=== PATIENT | male | born 1945 | race Two or more races ===

== ENCOUNTER 2017-02-27 10:30 | Emergency (ER) | payer MEDICARE, MEDICAID ==
[2017-02-27 11:09] LABS: % BASOPHILS 0.3 % (0.0-2.0); % EOSINOPHILS 0.6 % (0.0-5.0); % MONOCYTES 8.3 % (2.0-10.0); % NEUTROPHILS 73.8 % (40.0-80.0); HEMATOCRIT 42.4 % (39.0-49.0); HEMOGLOBIN 14.3 gm/dL (12.6-17.4); MEAN CELL VOLUME 89.3 fl (80-99); MEAN CORPUSCULAR HEMOGLOBIN 30.1 pg (27.0-31.0); MEAN CORPUSCULAR HGB CONC 33.7 pg (28.0-36.0); MEAN PLATELET VOLUME 7.4 fl; NEUTROPHILE ABSOLUTE 4.1 Th/cmm (1.8-8.0); PLATELET COUNT 134 Th/cmm (150-400); RED BLOOD COUNT 4.75 Mil/cmm (3.80-5.80); RED CELL DISTRIBUTION WIDTH 13.1 % (11.5-20.0)
[2017-02-27 11:12] LABS: WHITE BLOOD COUNT 5.6 Th/cmm (4.8-10.8)
[2017-02-27 11:20] LABS: INR 0.94 (0.5-1.4); PROTHROMBIN TIME (TEST) 9.8 SECONDS (9.5-11.5)
[2017-02-27 11:30] LABS: CHOLESTEROL 185 mg/dL (<200); TRIGLYCERIDES 127 mg/dL (<150)
[2017-02-27 11:32] LABS: ALB/GLOB RATIO 1.1 (1.0-1.8); ALKALINE PHOSPHATASE 100 U/L (34-104); ANION GAP 9.1 (7.0-16.0); BILIRUBIN,TOTAL 0.9 mg/dL (0.3-1.0); BUN - UREA NITROGEN 15 mg/dL (7-25); BUN/CREATININE RATIO 12.5; CARBON DIOXIDE 25.4 mEq/L (21.0-31.0); CHLORIDE 105 mEq/L (98-107); CREATININE - SERUM 1.2 mg/dL (0.7-1.3); GLUCOSE 111 mg/dL (70-105); POTASSIUM SERUM 3.5 mEq/L (3.5-5.1); SGOT 18 U/L (13-39); SGPT/ALT 10 U/L (7-52); SODIUM SERUM 136 mEq/L (136-145)
--- NOTE | 2017-02-27 11:38 | ED Physician Chart ---
Chief Complaint/HPI - Patient Information Date Seen:: 02/27/17 Time Seen:: 11:00 Chief Complaint:: right hip pain History of Present Illness:: THIS IS A 71 YO LONG TERM PATIENT SENT TO THIS ER FOR A EVALUATION OF HIS RIGHT HIP. HE WAS MOVING FROM THE BED TO THE CHAIR AND FELL. HE NOW IS COMPLAINING THAT HIS RIGHT HIP AREA IS HURTING AND THE PAIN INCREASES WHEN HE MOVES. HE IS CHRONICALLY ILL. Allergies:: Allergies Allergy/AdvReac Type Severity Reaction Status Date / Time No Known Allergies Allergy Verified 02/27/17 10:48 Vitals:: Vital Signs - 8 hr 02/27/17 10:48 Temp 97.3 F HR 78 RR 17 BP 147/79 O2 Sat % 96 Historian:: Patient, Medical Records Review:: Nurse's Note Reviewed, Old Chart Reviewed Review of Systems - Review of Systems General/Constitutional: No fever, No chills, No weight loss, No weakness, No diaphoresis, No edema, No loss of appetite Skin: No skin lesions, No rash, No bruising Head: No headache, No light-headedness Eyes: No loss of vision, No pain, No diplopia ENT: No earache, No nasal drainage, No sore throat, No tinnitus Neck: No neck pain, No swelling, No thyromegaly, No stiffness, No mass noted Cardio Vascular: No chest pain, No palpitations, No PND, No orthopnea, No edema Pulmonary: No SOB, No cough, No sputum, No wheezing GI: No nausea, No vomiting, No diarrhea, No pain, No melena, No hematochezia, No constipation, No hematemesis G/U: No dysuria, No frequency, No hematuria Musculoskeletal: Bone or joint pain (RIGHT HIP PAIN ON MOVEMENT), No back pain, No muscle pain Endocrine: No polyuria, No polydipsia Psychiatric: No prior psych history, No depression, No anxiety, No suicidal ideation Hematopoietic: No bruising, No lymphadenopathy Allergic/Immuno: No urticaria, No angioedema Neurological: No syncope, No focal symptoms, No weakness, No paresthesia, No headache, No seizure, No dizziness, No confusion, No vertigo Past Medical History - Past Medical History Obtainable: Yes Past Medical History: HTN, CVA/TIA, Dyslipidemia, Arthritis Family History: None Social History: Non Smoker, No Alcohol, No Drug Use, Care Facility Surgical History: None Psychiatricy History: None Medication: Reviewed Family Medical History - Family Member Mother History Unknown: Yes Ethnicity: Unknown Living Status: Unknown Hx Family Cancer: No Hx Family Coronary Artery Disease: No Hx Family Congestive Heart Failure: No Hx Family Hypertension: No Hx Family Stroke: No Hx Family Diabetes: No Hx Family Seizures: No Hx Family Dementia: No Hx Family AIDS: No Hx Family HIV: No Hx Family COPD: No Hx Family Hepatitis: No Hx Family Psychiatric Problems: No Hx Family Tuberculosis: No Physical Exam - Physical Examination General/Constitutional: Awake, Well-developed, well-nourished, Alert, No distress, GCS 15, Non-toxic appearing, Ambulatory Head: Atraumatic Eyes: Lids, conjuctiva normal, PERRL, EOMI Skin: Nl inspection, No rash, No skin lesions, No ecchymosis, Well hydrated, No lymphadenopathy ENMT: External ears, nose nl, Nasal exam nl, Lips, teeth, gums nl Neck: Nontender, Full ROM w/o pain, No JVD, No nuchal rigidity, No bruit, No mass, No stridor Respiratory: Nl effort/Exclusion, Clear to Auscultation, No Wheeze/Rhonchi/Rales Cardio Vascular: RRR, No murmur, gallop, rubs, NL S1 S2 GI: No tenderness/rebounding/guarding, No organomegaly, No hernia, Normal BS's, Nondistended, No mass/bruits, No McBurney tenderness : No CVA tenderness Extremities: No tenderness or effusion (THE RIGHT HIP AREA IS TENDER ON ROM WITH PAIN BUT NORMAL.), Full ROM, normal strength in all extremities, No edema, Normal digits & nails Neuro/Psych: Alert/oriented, DTR's symmetric, Normal sensory exam, Judgement/ insight normal, Mood normal, Normal gait Other Neuro/Psych comments:: THERE IS LEFT SIDED PARALYSIS OF THE UPPER EXTREMITY AND RIGHT LOWER QUADRANT WEAKNESS. Misc: normal gait, Normal back, No paraspinal tenderness Labs/Radiology/EKG Results - Lab Results Results: Laboratory Tests 02/27/17 02/27/17 02/27/17 10:55 10:55 10:55 WBC 5.6 D RBC 4.75 Hgb 14.3 Hct 42.4 MCV 89.3 MCH 30.1 MCHC Differential 33.7 RDW 13.1 Plt Count 134 L D MPV 7.4 Neutrophils % 73.8 Lymphocytes % 17.0 L Monocytes % 8.3 Eosinophils % 0.6 Basophils % 0.3 PT 9.8 INR 0.94 PTT (Actin FS) 26.4 Sodium Potassium Chloride Carbon Dioxide Anion Gap BUN Creatinine Est GFR ( Amer) Est GFR (Non-Af Amer) BUN/Creatinine Ratio Glucose Calcium Total Bilirubin AST ALT Alkaline Phosphatase Total Protein Albumin Globulin Albumin/Globulin Ratio Triglycerides 127 Cholesterol 185 LDL Cholesterol Direct 166 HDL Cholesterol 30 02/27/17 10:55 WBC RBC Hgb Hct MCV MCH MCHC Differential RDW Plt Count MPV Neutrophils % Lymphocytes % Monocytes % Eosinophils % Basophils % PT INR PTT (Actin FS) Sodium 136 Potassium 3.5 Chloride 105 Carbon Dioxide 25.4 Anion Gap 9.1 BUN 15 Creatinine 1.2 Est GFR ( Amer) TNP Est GFR (Non-Af Amer) TNP BUN/Creatinine Ratio 12.5 Glucose 111 H Calcium 9.0 Total Bilirubin 0.9 AST 18 ALT 10 Alkaline Phosphatase 100 Total Protein 6.9 Albumin 3.6 L Globulin 3.3 Albumin/Globulin Ratio 1.1 Triglycerides Cholesterol LDL Cholesterol Direct HDL Cholesterol - Radiology Results Results: RIGHT HIP X-RAY = DEGENERATIVE JOINT DISEASE OF THE RIGHT HIP JOINT. CHEST X-RAY = NAD - EKG Interpretations EKG Time:: 10:56 Rate & Rhythm: 67 RATE, SINUS [place]: RIGHT AXIS Assessment - Assessment General Assessment: NO FRACTURE WITH RIGHT HIP JOINT DISEASE. ED Septic Shock - . Is Septic Shock (SBP<90, OR Lactate>4 mmol\L) present?: No - <6hrs of presentation: Vital Signs: Vital Signs - 8 hr 02/27/17 10:48 Temp 97.3 F HR 78 RR 17 BP 147/79 O2 Sat % 96 Reassessment (Disposition) - Reassessment Reassessment Condition:: Unchanged - Diagnosis Diagnosis:: RIGHT HIP CONTUSION RIGHT HIP JOINT DISEASE - Aftercare/Follow up Instructions Aftercare/Follow-Up Instructions:: Counseled pt regarding lab results/diagnosis & need follow up, Refer to Discharge Instructions, Counseled pt & family regarding lab results/diagnosis & need follow up - Patient Disposition Discharge/Transfer:: Detention Care - SNF ED Discharge Plan - Patient Disposition Admit/Discharge/Transfer: Discharge/Transfered to SNF Condition at Disposition: Improved Instructions: Contusion Accepting Physician: Jimmy Castaneda [Primary Care Provider] - 1-3 Days
--- NOTE | 2017-02-27 13:06 | Diagnostic Imaging Report ---
Exam: Right hip joint 2 views HISTORY: Trauma. Findings: Multiple views of right hip joint reviewed. The study demonstrates severe osteoarthritic changes with narrowing of joint space. There is no evidence for acute fracture dislocation. The visualized right hemipelvis is intact. 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
--- NOTE | 2017-02-27 13:09 | Diagnostic Imaging Report ---
Exam chest portable x-ray HISTORY: Cough. Findings: Portable upright examination of the chest at 1119 hours reviewed no prior studies available comparison. The study demonstrates no active pulmonic infiltrates or effusions. Mediastinal structures midline the heart is not enlarged the aortic arch calcified. Thorax is intact IMPRESSION: No acute disease
== END 2017-02-27 13:35 ==
LOC: ER 10:30
DX: S70.01XA Contusion of right hip, initial encounter (principal); E78.5 Hyperlipidemia, unspecified; I10 Essential (primary) hypertension; Z86.73 Personal history of transient ischemic attack (TIA), and cerebral infarction without residual deficits; W07.XXXA Fall from chair, initial encounter; Y93.89 Activity, other specified; Y92.89 Other specified places as the place of occurrence of the external cause; Y99.8 Other external cause status
CPT/HCPCS: 36415-UA; 71010-TC; 73501; 80053-TC; 80061-TC; 84443-TC; 84484-TC; 85025-TC; 85610-TC; 85730-TC; 86592-TC; 93005; J1885

== ENCOUNTER 2017-07-25 13:25 | Inpatient (IN) | payer MEDICARE, MEDICAID ==
--- NOTE | 2017-07-25 13:46 | ED Physician Chart ---
ED Chief Complaint/HPI - Patient Information Date Seen:: 07/25/17 Time Seen:: 13:30 Chief Complaint:: Fever History of Present Illness:: onset x 3 weeks of intermittent fever, cough, and congestion; N/V multiple times x 2 days; no report of H/As, S/T, neck pain, C/P, SOB, Abd. Pain, A/D/C, chills, or urinary s/s Allergies:: Allergies Allergy/AdvReac Type Severity Reaction Status Date / Time No Known Allergies Allergy Verified 02/27/17 10:48 Historian:: Patient, EMS Review:: Nurse's Note Reviewed, Old Chart Reviewed, EMS run form Reviewed ED Review of Systems - Review of Systems General/Constitutional: Fever, No chills, No weight loss, No weakness, No diaphoresis, No edema, No loss of appetite Skin: No skin lesions, No rash, No bruising Head: No headache, No light-headedness Eyes: No loss of vision, No pain, No diplopia ENT: No earache, Nasal drainage, No sore throat, No tinnitus Neck: No neck pain, No swelling, No thyromegaly, No stiffness, No mass noted Cardio Vascular: No chest pain, No palpitations, No PND, No orthopnea, No edema Pulmonary: No SOB, Cough, No sputum, No wheezing GI: No nausea, No vomiting, No diarrhea, No pain, No melena, No hematochezia, No constipation, No hematemesis G/U: No dysuria, No frequency, No hematuria, No nacturia Musculoskeletal: No bone or joint pain, No back pain, No muscle pain Endocrine: No polyuria, No polydipsia Psychiatric: Prior psych history, Depression, Anxiety, No suicidal ideation, No homicidal ideation, No auditory hallucination, No visual hallucination Hematopoietic: No bruising, No lymphadenopathy Allergic/Immuno: No urticaria, No angioedema Neurological: No syncope, No focal symptoms, No weakness, No paresthesia, No headache, No seizure, No dizziness, No confusion, No vertigo ED Past Medical History - Past Medical History Obtainable: Yes Past Medical History: HTN, CVA/TIA, Dyslipidemia, PUD/GERD, Arthritis, Other ( BPH) Family History: Diabetes Melitus, HTN Social History: Non Smoker, No Alcohol, No Drug Use, Single, Care Facility Surgical History: None Psychiatricy History: Bipolar Medication: Reviewed Family Medical History - Family Member Mother History Unknown: Yes Ethnicity: Unknown Living Status: Unknown Hx Family Cancer: No Hx Family Coronary Artery Disease: No Hx Family Congestive Heart Failure: No Hx Family Hypertension: No Hx Family Stroke: No Hx Family Diabetes: No Hx Family Seizures: No Hx Family Dementia: No Hx Family AIDS: No Hx Family HIV: No Hx Family COPD: No Hx Family Hepatitis: No Hx Family Psychiatric Problems: No Hx Family Tuberculosis: No ED Physical Exam - Physical Examination General/Constitutional: Awake, Well-developed, well-nourished, Alert, No distress, GCS 15, Non-toxic appearing, Ambulatory Head: Atraumatic Eyes: Lids, conjuctiva normal, PERRL, EOMI Skin: Nl inspection, No rash, No skin lesions, No ecchymosis, No lymphadenopathy Other Skin comments:: Poor Turgor with dry mucous membranes ENMT: External ears, nose nl, TM canals nl, Nasal exam nl, Lips, teeth, gums nl , Oropharynx nl, Tonsils nl Neck: Nontender, Full ROM w/o pain, No JVD, No nuchal rigidity, No bruit, No mass, No stridor Respiratory: Nl effort/Exclusion, Clear to Auscultation, No Wheeze/Rhonchi/Rales Cardio Vascular: RRR, No murmur, gallop, rubs, NL S1 S2, Carotid/Femoral/Distal pulses equal bilaterally GI: No tenderness/rebounding/guarding, No organomegaly, No hernia, Normal BS's, Nondistended, No mass/bruits, No McBurney tenderness : No CVA tenderness Extremities: No tenderness or effusion, Full ROM, normal strength in all extremities, No edema, Normal digits & nails Neuro/Psych: Alert/oriented, DTR's symmetric, Normal sensory exam, Normal motor strength, Judgement/insight normal, Mood normal, Normal gait, No focal deficits Misc: Normal back, No paraspinal tenderness ED Labs/Radiology/EKG Results - Lab Results Comments:: WBC: 3.3 - Radiology Results Comments:: CXR: CM; NAD - EKG Interpretations EKG Time:: 15:21 Rate & Rhythm: 82; NSR Comments:: non-specific st-t changes ED Septic Shock - . Is Septic Shock (SBP<90, OR Lactate>4 mmol\L) present?: No ED Reassessment (Disposition) - Diagnosis Diagnosis:: Dx: Leukopenia; Sepsis; N/V; Gastritis; AGE; Intractable Vomiting; Dehydration; Bronchitis - Aftercare/Follow up Instructions Aftercare/Follow-Up Instructions:: Counseled pt regarding lab results/diagnosis & need follow up, Counseled pt & family regarding lab results/diagnosis & need follow up Medication Prescribed:: Dr. Castaneda referred pt to be admitted under Dr. Steve Woody - Patient Disposition Discharge/Transfer:: Acute Care w/in this hosp Accepting Physician:: Dr. Steve Woody Time Called:: 1600 Time Responded:: 16:00 Admitted to:: Med/Surg Spoke to:: Dr. Castaneda Admitting Medical Physician:: Dr. Steve Woody Condition at Disposition:: Stable, Improved
[2017-07-25] MEDS ORDERED: Sodium Chloride 0.9% 1,000 ML IV ONE (13:48)
[2017-07-25 14:20] LABS: % BASOPHILS 3.9 % (0.0-2.0); % EOSINOPHILS 0.2 % (0.0-5.0); % LYMPHOCYTES 6.9 % (20.0-50.0); % MONOCYTES 7.4 % (2.0-10.0); % NEUTROPHILS 81.6 % (40.0-80.0); BASOPHILE ABSOLUTE 0.1 Th/cumm (0-0.2); HEMOGLOBIN 14.3 gm/dL (12-16); LYMPHOCYTE ABSOLUTE 0.2 Th/cmm (1.5-3.0); MEAN CELL VOLUME 93.1 fl (80-99); MEAN CORPUSCULAR HEMOGLOBIN 31.6 pg (27.0-31.0); MEAN PLATELET VOLUME 7.4 fl; MONOCYTE ABSOLUTE 0.2 Th/cmm (0.3-1.0); NEUTROPHILE ABSOLUTE 2.8 Th/cmm (1.8-8.0); PLATELET COUNT 110 Th/cmm (150-400); RED BLOOD COUNT 4.51 Mil/cmm (3.80-5.80); RED CELL DISTRIBUTION WIDTH 13.5 % (11.5-20.0)
[2017-07-25 14:29] LABS: INR 1.06 (0.5-1.4)
[2017-07-25 14:31] LABS: WHITE BLOOD COUNT 3.3 Th/cmm (4.8-10.8)
[2017-07-25 14:41] LABS: TROP I 0.02 ng/mL (0.01-0.05)
--- NOTE | 2017-07-25 14:43 | Diagnostic Imaging Report ---
Portable chest x-ray HISTORY: Pain The heart appears to be somewhat enlarged. No focal pulmonary processes. No hilar or mediastinal abnormalities. IMPRESSION: 1. No acute pulmonary process 2. Generous heart size
[2017-07-25 14:47] LABS: ALB/GLOB RATIO 1.2 (1.0-1.8); ALBUMIN 3.7 gm/dL (4.2-5.5); ALKALINE PHOSPHATASE 111 U/L (34-104); ANION GAP 8.9 (7.0-16.0); BILIRUBIN,TOTAL 0.5 mg/dL (0.3-1.0); BUN - UREA NITROGEN 13 mg/dL (7-25); CALCIUM SERUM 8.8 mg/dL (8.6-10.3); CARBON DIOXIDE 24.8 mEq/L (21.0-31.0); CHLORIDE 106 mEq/L (98-107); CREATININE KINASE 50 U/L (30-223); GLUCOSE 111 mg/dL (70-105); POTASSIUM SERUM 3.7 mEq/L (3.5-5.1); SGOT 18 U/L (13-39); SGPT/ALT 13 U/L (7-52); SODIUM SERUM 136 mEq/L (136-145); TOTAL PROTEIN,SERUM 6.7 gm/dL (6.0-8.3)
[2017-07-25] MEDS ORDERED: cefTRIAXone 1 GM in Sodium Chloride 0.9% 50 ML IV ONE (17:40)
[2017-07-25] MEDS: Levofloxacin 500mg/100mL 500 MG/100 ML BAG IV SCH (21:27)
[2017-07-25] MEDS: D5-0.45NS 1,000 ML IV SCH (21:35)
[2017-07-26] MEDS ORDERED: Pneumococcal Vaccine 0.5 mL Vial IM ONE (00:23)
[2017-07-26 03:30] LABS: URINE MICROSCOPIC INDICATED? YES; URINE SOURCE MIDSTREAM
[2017-07-26 03:35] LABS: URINE BILIRUBIN NEGATIVE (NEGATIVE); URINE BLOOD LARGE (NEGATIVE); URINE GLUCOSE (UA) NEGATIVE (NEGATIVE); URINE KETONE TRACE mg/dL (NEGATIVE); URINE LEUKOCYTE ESTERASE NEGATIVE (NEGATIVE); URINE NITRATE NEGATIVE (NEGATIVE); URINE PH 6.5 (4.6 - 8.0); URINE PROTEIN TRACE mg/dL (NEGATIVE); URINE UROBILINOGEN 0.2 E.U./dL (0.2 - 1.0)
[2017-07-26 03:41] LABS: URINE CLARITY HAZY (CLEAR); URINE COLOR YELLOW; URINE RBC 50-100 /hpf (0-5)
[2017-07-26 03:42] LABS: URINE BACTERIA FEW /hpf (NONE SEEN); URINE EPITHELIAL CELLS MODERATE /lpf (FEW)
[2017-07-26 04:35] VITALS: BP 148/74
--- NOTE | 2017-07-26 06:38 | Consultation ---
DATE OF CONSULTATION: 07/25/2017 INFECTIOUS DISEASE CONSULTATION REFERRING PHYSICIAN: Christina aMdsen M.D. REASON FOR CONSULTATION: Sepsis. HISTORY OF PRESENT ILLNESS: The patient is a 71-year-old male with a past medical history of hypertension, CVA, dyslipidemia, peptic ulcer disease, arthritis and BPH, developed cough for the last 3 weeks associated with new fever. The patient also has a history of chronic bronchitis. His primary physician is Dr. Castaneda, sent him to the hospital ER for further evaluation and management. On initial evaluation, the patient's temperature was 99.5 degrees Fahrenheit and it went to 101.1 degrees Fahrenheit. His WBC count 3300. The patient was started on levofloxacin and Infectious Disease consultation was called for further antibiotic management. The patient is already receiving Rocephin. Chest x-ray showed no acute disease. PAST MEDICAL HISTORY: Includes CVA, hypertension, dyslipidemia, peptic ulcer disease, GERD, arthritis, BPH. ALLERGIES: NKDA. MEDICATIONS: See medication reconciliation sheet. Antibiotic parks, the patient is receiving Levaquin. FAMILY HISTORY: Diabetes mellitus type 2 and hypertension. SOCIAL HISTORY: The patient lives at nursing facility. No history of smoking, alcohol or drug use. INTERVAL HISTORY: None. REVIEW OF SYSTEMS: GENERAL: The patient has fever, no chills, no weight loss. No generalized weakness. HEENT: The patient denies any diplopia, photophobia, sore throat or congestion. RESPIRATORY: The patient has cough for the last few weeks. No shortness of breath. No wheezing. CARDIOVASCULAR: The patient denies any chest pain or palpitation. GASTROINTESTINAL: The patient denies any nausea, vomiting, diarrhea, or constipation. GENITOURINARY: No dysuria, no hematuria. SKIN: The patient has dry skin, feels itchy. MUSCULOSKELETAL: No muscle pain, no joint pain. NEUROLOGICAL: No headache, no dizziness, no focal weakness. PHYSICAL EXAMINATION: VITAL SIGNS: Shows temperature is 99 degrees Fahrenheit, T-max is 101.1 degrees Fahrenheit, pulse 90, respirations 18, blood pressure is 148/74. GENERAL: The patient is comfortable lying in the bed, not in acute distress. HEENT: Head is normocephalic, atraumatic. Oral cavity moist, pink tongue. Eyes: Pallor is present, no icterus. Pupils PERRLA, EOMI. NECK: Supple, no JVD, no carotid bruit. Trachea midline. CHEST: Bilateral breath sounds. No crackles or wheezing. CARDIOVASCULAR: S1, S2 within normal limits. Regular rhythm. No murmur, no gallop. ABDOMEN: Soft, nontender, nondistended. Bowel sounds present. EXTREMITIES: No cyanosis, no clubbing, no edema. NEUROLOGIC: Alert, awake, oriented x 3. No focal neuro deficit. LABORATORY DATA: Current lab shows WBC count is 3300. Hemoglobin 14.3, hematocrit 42.0, platelets are 110,000. Sodium 136, potassium 3.7, chloride 106, bicarbonate is 25, BUN is 13, creatinine 1, glucose is 111. Sepsis workup is pending. Chest x-ray shows no active disease. IMPRESSION: 1. Bronchitis, rule out influenza. 2. Urinary tract infection, hematuria. 3. History of cerebrovascular accident. 4. Hypertension. RECOMMENDATIONS: We will continue Levaquin. We will get influenza screen. Thank you, Dr. Madsen, for involving me in taking care of this patient. JOB# [id number]
[2017-07-26 07:09] LABS: BUN - UREA NITROGEN 12 mg/dL (7-25); CALCIUM SERUM 8.9 mg/dL (8.6-10.3); CARBON DIOXIDE 22.3 mEq/L (21.0-31.0); CHLORIDE 105 mEq/L (98-107); CHOLESTEROL 207 mg/dL (<200); GLUCOSE 98 mg/dL (70-105); HDL -HIGH DENSITY LIPOPROTEIN 45 mg/dL (23-92); POTASSIUM SERUM 4.3 mEq/L (3.5-5.1); SODIUM SERUM 136 mEq/L (136-145); TRIGLYCERIDES 91 mg/dL (<150)
[2017-07-26 07:19] LABS: HEMATOCRIT 44.6 % (41.0-60); RED CELL DISTRIBUTION WIDTH 13.9 % (11.5-20.0)
[2017-07-26 07:45] LABS: MEAN CELL VOLUME 93.2 fl (80-99); MEAN CORPUSCULAR HEMOGLOBIN 31.3 pg (27.0-31.0); MEAN CORPUSCULAR HGB CONC 33.5 pg (28.0-36.0); RED BLOOD COUNT 4.79 Mil/cmm (3.80-5.80)
[2017-07-26 07:46] LABS: % BASOPHILS 0.1 % (0.0-2.0); % EOSINOPHILS 0.2 % (0.0-5.0); % MONOCYTES 14.5 % (2.0-10.0); % NEUTROPHILS 69.2 % (40.0-80.0); LYMPHOCYTE ABSOLUTE 0.7 Th/cmm (1.5-3.0); MEAN PLATELET VOLUME 7.8 fl; MONOCYTE ABSOLUTE 0.6 Th/cmm (0.3-1.0); NEUTROPHILE ABSOLUTE 3.1 Th/cmm (1.8-8.0)
[2017-07-26 07:48] LABS: PLATELET COUNT 76 Th/cmm (150-400); WHITE BLOOD COUNT 4.4 Th/cmm (4.8-10.8)
--- NOTE | 2017-07-26 08:21 | Consultation ---
DATE OF CONSULTATION: 07/26/2017 NEUROLOGY CONSULTATION HISTORY OF PRESENT ILLNESS: The patient is a 71-year-old. The patient admitted with complaints of feeling weak. The patient having cough, some nausea, vomiting. Seems a little bit better. He still has some cough. He says he was a little bit weaker than his usual self. The patient is confused, able to some questions, but still seems to be a little bit worse than before. PAST MEDICAL HISTORY: 1. 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 2. Hypertension. 3. Dyslipidemia. 4. Peptic ulcer disease. 5. GERD. 6. Arthritis. MEDICATIONS: As per reconciliation. Here, the patient is on baclofen 10 mg daily, Plavix 75 mg, Lasix, losartan, Protonix, and tramadol 50 mg. REVIEW OF SYSTEMS: On direct questioning, the patient has dysarthria, confusion. The patient has cough and shortness of breath. The patient is able to swallow. PHYSICAL EXAMINATION: VITAL SIGNS: Temperature 99.4, blood pressure 140/74, and pulse is around 90. NECK: Supple, no bruits. HEART: Sounds S1, S2. LUNGS: Clear. NEUROLOGIC: Awake, alert. He is able to give me his name, his age. He tells me he lives in intermediate. He did not know what day or what month. CRANIAL: The patient tends to ignore the left side. The patient has left facial weakness. Pupils react to light. MOTOR: He lifts right arm and leg okay. Really not much movement of the left arm, slight. Left leg is even less. Increased tone with spasticity, left arm is semi-flexed. INVESTIGATIONS: WBC 3.3, hemoglobin is 14.3, platelets 110. LDL is 158. WBC in the urine is 2 to 5. IMPRESSION: 1. Sepsis. 2. Bronchitis. 3. Rule out influenza. 4. The patient has hematuria. 3. History of stroke with left hemiplegia, confusion. 4. Encephalopathy. 5. Hypertension. PLAN: Continue present treatment. The patient will continue with antiplatelet medications. LDL is high, I would also recommend antilipid medications. JOB# [id number]
--- NOTE | 2017-07-26 09:36 | Diagnostic Imaging Report ---
Head CT without intravenous contrast Indication: TIA Comparison: 08/23/2014 Technique: Axial images were obtained from the vertex to the skull base without IV contrast. Coronal reconstructions were made. Total DLP: 934, [id number] FINDINGS: Images of the brain obtained without contrast demonstrate no evidence of acute hemorrhage. Diffuse atrophy is noted. Moderate white matter disease is seen with old bilateral basal ganglia infarcts. The ventricles and basal cisterns are patent. No mass effect or midline shift. No evidence of a skull fracture or focal soft tissue swelling. There is mucosal thickening of paranasal sinuses. IMPRESSION: No evidence of acute intracranial hemorrhage. Diffuse atrophy. Moderate supratentorial white matter disease which is nonspecific and may be due to chronic microvessel ischemia. Old bilateral basal ganglia infarcts. If indicated follow up exams is is MRI may be obtained.
[2017-07-26] MEDS: Pantoprazole 40 mg EC Tab PO SCH ×2 (09:58→17:28)
--- NOTE | 2017-07-26 16:22 | History and Physical ---
History of Present Illness - HPI Vital Signs: Last Vital Signs Temp 98.3 F 07/26/17 08:00 Pulse 100 07/26/17 09:57 Resp 18 07/26/17 08:00 BP 154/83 07/26/17 09:58 Pulse Ox 99 07/26/17 08:00 Family Medical History - Family Member Mother History Unknown: Yes Ethnicity: Unknown Living Status: Unknown Hx Family Cancer: No Hx Family Coronary Artery Disease: No Hx Family Congestive Heart Failure: No Hx Family Hypertension: No Hx Family Stroke: No Hx Family Diabetes: No Hx Family Seizures: No Hx Family Dementia: No Hx Family AIDS: No Hx Family HIV: No Hx Family COPD: No Hx Family Hepatitis: No Hx Family Psychiatric Problems: No Hx Family Tuberculosis: No - Medications Home Medications: Home Medication Medication Instructions Recorded Type Clopidogrel [Plavix] 75 mg PO DAILY #0 tab 12/02/14 Rx Losartan Potassium [Cozaar] 50 mg PO DAILY #0 tab 12/02/14 Rx Docusate Sodium [Stool Softener] 2 tab PO BID 02/27/17 History Esomeprazole Magnesium 20 mg PO BID 02/27/17 History Furosemide 40 mg PO MWF 02/27/17 History Tramadol HCl [Ultram] 50 mg PO ACHS 02/27/17 History Baclofen [Lioresal*] 1 tab PO DAILY 07/25/17 History - Allergies Allergies/Adverse Reactions: Allergies Allergy/AdvReac Type Severity Reaction Status Date / Time No Known Allergies Allergy Verified 02/27/17 10:48 - Lab Results All Lab Results last 24 hours: Laboratory Results - last 24 hr 07/26/17 07/26/17 06:40 06:40 WBC 4.4 L D RBC 4.79 Hgb 15.0 Hct 44.6 MCV 93.2 MCH 31.3 H MCHC Differential 33.5 RDW 13.9 Plt Count 76 L D MPV 7.8 Neutrophils % 69.2 Lymphocytes % 16.0 L Monocytes % 14.5 H Eosinophils % 0.2 Basophils % 0.1 Sodium 136 Potassium 4.3 Chloride 105 Carbon Dioxide 22.3 Anion Gap 13.0 BUN 12 Creatinine 1.0 Est GFR ( Amer) TNP Est GFR (Non-Af Amer) TNP BUN/Creatinine Ratio 12.0 Glucose 98 Calcium 8.9 Triglycerides 91 Cholesterol 207 H LDL Cholesterol Direct 158 HDL Cholesterol 45
[2017-07-26] MEDS: Levofloxacin 500mg/100mL 500 MG/100 ML BAG IV SCH (20:47)
[2017-07-26] MEDS: D5-0.45NS 1,000 ML IV SCH (20:48)
[2017-07-27] MEDS: Pantoprazole 40 mg EC Tab PO SCH ×2 (10:01→17:38)
--- NOTE | 2017-07-27 11:49 | Diagnostic Imaging Report ---
Renal ultrasound HISTORY: Abnormal renal function, pyelonephritis Exam is very limited due to patient immobility and difficulty in cooperation. The right kidney appears enlarged (13.4 x 7.1 x 6.0 cm). No focal lesions. No hydronephrosis. The left kidney could not be clearly visualized. No intraluminal abnormality seen within the urinary bladder. IMPRESSION: 1. Limited examination due to the factors noted above 2. Left kidney is not clearly visualized. If necessary, a CT scan would provide additional anatomic evaluation.
--- NOTE | 2017-07-27 14:29 | Internal Medicine Prog Note ---
Internal Medicine Subjective - Subjective Service Date: 07/27/17 Patient seen and examined:: with staff Patient is:: awake Per staff patient has:: no adverse event, tolerating meds Internal Medicine Objective - Results Result Diagrams: 07/26/17 06:40 07/26/17 06:40 Recent Labs: Laboratory Last Values WBC 4.4 Th/cmm (4.8-10.8) L D 07/26/17 06:40 RBC 4.79 Mil/cmm (3.80-5.80) 07/26/17 06:40 Hgb 15.0 gm/dL (12-16) 07/26/17 06:40 Hct 44.6 % (41.0-60) 07/26/17 06:40 MCV 93.2 fl (80-99) 07/26/17 06:40 MCH 31.3 pg (27.0-31.0) H 07/26/17 06:40 MCHC Differential 33.5 pg (28.0-36.0) 07/26/17 06:40 RDW 13.9 % (11.5-20.0) 07/26/17 06:40 Plt Count 76 Th/cmm (150-400) L D 07/26/17 06:40 MPV 7.8 fl 07/26/17 06:40 Neutrophils % 69.2 % (40.0-80.0) 07/26/17 06:40 Lymphocytes % 16.0 % (20.0-50.0) L 07/26/17 06:40 Monocytes % 14.5 % (2.0-10.0) H 07/26/17 06:40 Eosinophils % 0.2 % (0.0-5.0) 07/26/17 06:40 Basophils % 0.1 % (0.0-2.0) 07/26/17 06:40 PT 11.0 SECONDS (9.5-11.5) 07/25/17 14:07 INR 1.06 (0.5-1.4) 07/25/17 14:07 PTT (Actin FS) 26.0 SECONDS (26.0-38.0) 07/25/17 14:07 Sodium 136 mEq/L (136-145) 07/26/17 06:40 Potassium 4.3 mEq/L (3.5-5.1) 07/26/17 06:40 Chloride 105 mEq/L (98-107) 07/26/17 06:40 Carbon Dioxide 22.3 mEq/L (21.0-31.0) 07/26/17 06:40 Anion Gap 13.0 (7.0-16.0) 07/26/17 06:40 BUN 12 mg/dL (7-25) 07/26/17 06:40 Creatinine 1.0 mg/dL (0.7-1.3) 07/26/17 06:40 Est GFR ( Amer) TNP 07/26/17 06:40 Est GFR (Non-Af Amer) TNP 07/26/17 06:40 BUN/Creatinine Ratio 12.0 07/26/17 06:40 Glucose 98 mg/dL (70-105) 07/26/17 06:40 Whole Bld Lactic Acid 1.19 mmol/L (0.60-1.99) 07/25/17 14:07 Calcium 8.9 mg/dL (8.6-10.3) 07/26/17 06:40 Total Bilirubin 0.5 mg/dL (0.3-1.0) 07/25/17 14:07 AST 18 U/L (13-39) 07/25/17 14:07 ALT 13 U/L (7-52) 07/25/17 14:07 Alkaline Phosphatase 111 U/L (34-104) H 07/25/17 14:07 Creatine Kinase 50 U/L (30-223) 07/25/17 14:07 Troponin I 0.02 ng/mL (0.01-0.05) 07/25/17 14:07 Total Protein 6.7 gm/dL (6.0-8.3) 07/25/17 14:07 Albumin 3.7 gm/dL (4.2-5.5) L 07/25/17 14:07 Globulin 3.0 gm/dL 07/25/17 14:07 Albumin/Globulin Ratio 1.2 (1.0-1.8) 07/25/17 14:07 Triglycerides 91 mg/dL (<150) 07/26/17 06:40 Cholesterol 207 mg/dL (<200) H 07/26/17 06:40 LDL Cholesterol Direct 158 mg/dL (75-193) 07/26/17 06:40 HDL Cholesterol 45 mg/dL (23-92) 07/26/17 06:40 TSH 2.11 uIU/ml (0.34-5.60) 07/25/17 14:07 Urine Source MIDSTREAM 07/25/17 03:15 Urine Color YELLOW 07/25/17 03:15 Urine Clarity HAZY (CLEAR) 07/25/17 03:15 Urine pH 6.5 (4.6 - 8.0) 07/25/17 03:15 Ur Specific [place] 1.025 (1.005-1.030) 07/25/17 03:15 Urine Protein TRACE mg/dL (NEGATIVE) 07/25/17 03:15 Urine Glucose (UA) NEGATIVE mg/dL (NEGATIVE) 07/25/17 03:15 Urine Ketones TRACE mg/dL (NEGATIVE) 07/25/17 03:15 Urine Blood LARGE (NEGATIVE) H 07/25/17 03:15 Urine Nitrate NEGATIVE (NEGATIVE) 07/25/17 03:15 Urine Bilirubin NEGATIVE (NEGATIVE) 07/25/17 03:15 Urine Urobilinogen 0.2 E.U./dL (0.2 - 1.0) 07/25/17 03:15 Ur Leukocyte Esterase NEGATIVE (NEGATIVE) 07/25/17 03:15 Urine RBC 50-100 /hpf (0-5) H 07/25/17 03:15 Urine WBC 2-5 /hpf (0-5) H 07/25/17 03:15 Ur Epithelial Cells MODERATE /lpf (FEW) 07/25/17 03:15 Urine Bacteria FEW /hpf (NONE SEEN) 07/25/17 03:15 Hyaline Casts 2-5 /lpf (0-2) H 07/25/17 03:15 Urine Mucus MODERATE /lpf (FEW) 07/25/17 03:15 - Physical Exam Vitals and I&O: Vital Signs Temp 98.2 F 07/27/17 04:00 Pulse 90 07/27/17 10:01 Resp 20 07/27/17 04:00 BP 126/71 07/27/17 10:01 Pulse Ox 98 07/27/17 04:00 Intake & Output 07/26/17 07/27/17 07/27/17 18:59 06:59 18:59 Intake Total 2001 Balance 2002 Weight (lbs) 245 lb 242 lb 3.2 oz Intake: Intake, IV Amount 1000 D5-0.45NS 1,000 ml @ 50 1000 mls/hr IV .Q20H [facility] Rx#: [id number] Oral 1002 Other: # Voids 3 # Bowel Movements 0 Active Medications: Current Medications Acetaminophen (Tylenol) 650 mg PO Q4H PRN PRN Reason: PAIN AND OR FEVER Stop: 09/23/17 19:57 Baclofen (Lioresal) 10 mg PO DAILY [facility] Stop: 09/24/17 08:59 Last Admin: 07/27/17 10:01 Dose: 10 mg Clopidogrel Bisulfate (Plavix) 75 mg PO DAILY [facility] Stop: 09/24/17 08:59 Last Admin: 07/27/17 10:02 Dose: 75 mg Docusate Sodium (Colace) 500 mg PO BID [facility] Stop: 09/24/17 18:59 Last Admin: 07/27/17 10:02 Dose: 500 mg Furosemide (Lasix) 40 mg PO MWF [facility] Stop: 09/24/17 08:59 Last Admin: 07/26/17 09:58 Dose: 40 mg Dextrose/Sodium Chloride (D5-0.45ns) 1,000 mls @ 50 mls/hr IV .Q20H [facility] Stop: 09/23/17 19:49 Last Admin: 07/26/17 20:48 Dose: 50 mls/hr Levofloxacin (Levaquin Pb) 500 mg in 100 mls @ 100 mls/hr IV Q24HR [facility] Stop: 09/23/17 20:59 Last Admin: 07/26/17 20:47 Dose: 100 mls/hr Losartan Potassium (Cozaar) 50 mg PO DAILY [facility] Stop: 09/24/17 08:59 Last Admin: 07/27/17 10:01 Dose: 50 mg Ondansetron HCl (Zofran) 4 mg IV Q6H PRN PRN Reason: Nausea Stop: 09/23/17 19:45 Pantoprazole Sodium (Protonix) 40 mg PO BID [facility] Stop: 09/24/17 08:59 Last Admin: 07/27/17 10:01 Dose: 40 mg Tramadol HCl (Ultram) 50 mg PO ACHS [facility] Stop: 09/24/17 07:29 Last Admin: 07/27/17 06:40 Dose: Not Given General: weak, alert, demented HEENT: NC/AT, PERRLA Neck: Supple Lungs: CTAB Cardiovascular: RRR, Normal S1, Normal S2 Abdomen: soft, non-tender, non-distended, positive bowel sound Neurological: alert - Procedures Procedures: Procedures Procedure Code Date APPLICATION OF SPLINT 93.54 04/01/07 APPLY FOREARM SPLINT 49341 04/01/07 CATARAC PHACOEMULS/ASPIR 13.41 12/13/10 CATARACT SURG W/IOL 1 STAGE 05583 12/13/10 INSERT LENS AT [facility]AR EXT 13.71 12/13/10 OTHER GROUP THERAPY 94.44 11/21/14 Internal Medicine Assmt/Plan - Assessment Assessment: aCUTE BRONCHITIS ACUTE UTI HEMATURIA HTN - Plan Plan: CONTINUE IVABX PER ID FOLLOW UP LABS IN AM CONTINUE CURRENT PLAN OF CARE
[2017-07-27] MEDS: Levofloxacin 500mg/100mL 500 MG/100 ML BAG IV SCH (20:57)
[2017-07-27] MEDS: D5-0.45NS 1,000 ML IV SCH (21:00)
--- NOTE | 2017-07-27 23:52 | Infectious Disease Prog Note ---
Infectious Disease Subjective - Review of Systems Service Date: 07/27/17 Subjective: Doing well. Infectious Disease Objective - Results Result Diagrams: 07/28/17 05:53 07/28/17 05:53 Recent Labs: Laboratory Last Values WBC 4.4 Th/cmm (4.8-10.8) L D 07/26/17 06:40 RBC 4.79 Mil/cmm (3.80-5.80) 07/26/17 06:40 Hgb 15.0 gm/dL (12-16) 07/26/17 06:40 Hct 44.6 % (41.0-60) 07/26/17 06:40 MCV 93.2 fl (80-99) 07/26/17 06:40 MCH 31.3 pg (27.0-31.0) H 07/26/17 06:40 MCHC Differential 33.5 pg (28.0-36.0) 07/26/17 06:40 RDW 13.9 % (11.5-20.0) 07/26/17 06:40 Plt Count 76 Th/cmm (150-400) L D 07/26/17 06:40 MPV 7.8 fl 07/26/17 06:40 Neutrophils % 69.2 % (40.0-80.0) 07/26/17 06:40 Lymphocytes % 16.0 % (20.0-50.0) L 07/26/17 06:40 Monocytes % 14.5 % (2.0-10.0) H 07/26/17 06:40 Eosinophils % 0.2 % (0.0-5.0) 07/26/17 06:40 Basophils % 0.1 % (0.0-2.0) 07/26/17 06:40 PT 11.0 SECONDS (9.5-11.5) 07/25/17 14:07 INR 1.06 (0.5-1.4) 07/25/17 14:07 PTT (Actin FS) 26.0 SECONDS (26.0-38.0) 07/25/17 14:07 Sodium 136 mEq/L (136-145) 07/26/17 06:40 Potassium 4.3 mEq/L (3.5-5.1) 07/26/17 06:40 Chloride 105 mEq/L (98-107) 07/26/17 06:40 Carbon Dioxide 22.3 mEq/L (21.0-31.0) 07/26/17 06:40 Anion Gap 13.0 (7.0-16.0) 07/26/17 06:40 BUN 12 mg/dL (7-25) 07/26/17 06:40 Creatinine 1.0 mg/dL (0.7-1.3) 07/26/17 06:40 Est GFR ( Amer) TNP 07/26/17 06:40 Est GFR (Non-Af Amer) TNP 07/26/17 06:40 BUN/Creatinine Ratio 12.0 07/26/17 06:40 Glucose 98 mg/dL (70-105) 07/26/17 06:40 Whole Bld Lactic Acid 1.19 mmol/L (0.60-1.99) 07/25/17 14:07 Calcium 8.9 mg/dL (8.6-10.3) 07/26/17 06:40 Total Bilirubin 0.5 mg/dL (0.3-1.0) 07/25/17 14:07 AST 18 U/L (13-39) 07/25/17 14:07 ALT 13 U/L (7-52) 07/25/17 14:07 Alkaline Phosphatase 111 U/L (34-104) H 07/25/17 14:07 Creatine Kinase 50 U/L (30-223) 07/25/17 14:07 Troponin I 0.02 ng/mL (0.01-0.05) 07/25/17 14:07 Total Protein 6.7 gm/dL (6.0-8.3) 07/25/17 14:07 Albumin 3.7 gm/dL (4.2-5.5) L 07/25/17 14:07 Globulin 3.0 gm/dL 07/25/17 14:07 Albumin/Globulin Ratio 1.2 (1.0-1.8) 07/25/17 14:07 Triglycerides 91 mg/dL (<150) 07/26/17 06:40 Cholesterol 207 mg/dL (<200) H 07/26/17 06:40 LDL Cholesterol Direct 158 mg/dL (75-193) 07/26/17 06:40 HDL Cholesterol 45 mg/dL (23-92) 07/26/17 06:40 TSH 2.11 uIU/ml (0.34-5.60) 07/25/17 14:07 Urine Source MIDSTREAM 07/25/17 03:15 Urine Color YELLOW 07/25/17 03:15 Urine Clarity HAZY (CLEAR) 07/25/17 03:15 Urine pH 6.5 (4.6 - 8.0) 07/25/17 03:15 Ur Specific [place] 1.025 (1.005-1.030) 07/25/17 03:15 Urine Protein TRACE mg/dL (NEGATIVE) 07/25/17 03:15 Urine Glucose (UA) NEGATIVE mg/dL (NEGATIVE) 07/25/17 03:15 Urine Ketones TRACE mg/dL (NEGATIVE) 07/25/17 03:15 Urine Blood LARGE (NEGATIVE) H 07/25/17 03:15 Urine Nitrate NEGATIVE (NEGATIVE) 07/25/17 03:15 Urine Bilirubin NEGATIVE (NEGATIVE) 07/25/17 03:15 Urine Urobilinogen 0.2 E.U./dL (0.2 - 1.0) 07/25/17 03:15 Ur Leukocyte Esterase NEGATIVE (NEGATIVE) 07/25/17 03:15 Urine RBC 50-100 /hpf (0-5) H 07/25/17 03:15 Urine WBC 2-5 /hpf (0-5) H 07/25/17 03:15 Ur Epithelial Cells MODERATE /lpf (FEW) 07/25/17 03:15 Urine Bacteria FEW /hpf (NONE SEEN) 07/25/17 03:15 Hyaline Casts 2-5 /lpf (0-2) H 07/25/17 03:15 Urine Mucus MODERATE /lpf (FEW) 07/25/17 03:15 - Physical Exam Vitals and I&O: Vital Signs Temp 97.9 F 07/27/17 20:00 Pulse 69 07/27/17 20:00 Resp 18 07/27/17 20:00 BP 121/58 07/27/17 20:00 Pulse Ox 94 07/27/17 20:00 Intake & Output 07/27/17 07/27/17 07/28/17 06:59 18:59 06:59 Intake Total 100 150 Balance 100 150 Weight (lbs) 109.86 kg 109.86 kg 109.86 kg Intake: Intake, IV Amount 100 Levofloxacin 500mg/100mL 100 500 mg In 100 ml @ 100 mls/hr IV Q24HR [facility] Rx#: [id number] Oral 150 Other: # Voids 3 1 # Bowel Movements 0 0 Active Medications: Current Medications Acetaminophen (Tylenol) 650 mg PO Q4H PRN PRN Reason: PAIN AND OR FEVER Stop: 09/23/17 19:57 Baclofen (Lioresal) 10 mg PO DAILY [facility] Stop: 09/24/17 08:59 Last Admin: 07/27/17 10:01 Dose: 10 mg Clopidogrel Bisulfate (Plavix) 75 mg PO DAILY [facility] Stop: 09/24/17 08:59 Last Admin: 07/27/17 10:02 Dose: 75 mg Docusate Sodium (Colace) 500 mg PO BID [facility] Stop: 09/24/17 18:59 Last Admin: 07/27/17 17:38 Dose: 500 mg Furosemide (Lasix) 40 mg PO MWF [facility] Stop: 09/24/17 08:59 Last Admin: 07/26/17 09:58 Dose: 40 mg Dextrose/Sodium Chloride (D5-0.45ns) 1,000 mls @ 50 mls/hr IV .Q20H [facility] Stop: 09/23/17 19:49 Last Admin: 07/26/17 20:48 Dose: 50 mls/hr Levofloxacin (Levaquin Pb) 500 mg in 100 mls @ 100 mls/hr IV Q24HR [facility] Stop: 09/23/17 20:59 Last Admin: 07/27/17 20:57 Dose: 100 mls/hr Losartan Potassium (Cozaar) 50 mg PO DAILY [facility] Stop: 09/24/17 08:59 Last Admin: 07/27/17 10:01 Dose: 50 mg Ondansetron HCl (Zofran) 4 mg IV Q6H PRN PRN Reason: Nausea Stop: 09/23/17 19:45 Pantoprazole Sodium (Protonix) 40 mg PO BID [facility] Stop: 09/24/17 08:59 Last Admin: 07/27/17 17:38 Dose: 40 mg Tramadol HCl (Ultram) 50 mg PO ACHS [facility] Stop: 09/24/17 07:29 Last Admin: 07/27/17 21:36 Dose: 50 mg General: no acute distress, well developed, well nourished HEENT: atraumatic, normocephalic, PERRLA Neck: supple, no thyromegaly Cardiovascular: S1S2, regular Lungs: clear to auscultation bilaterally, clear to percussion Abdomen: soft, no tender, no distended, no mass Extremities: no cyanosis, no clubbing, no edema - Procedures Procedures: Procedures Procedure Code Date APPLICATION OF SPLINT 93.54 04/01/07 APPLY FOREARM SPLINT 68800 04/01/07 CATARAC PHACOEMULS/ASPIR 13.41 12/13/10 CATARACT SURG W/IOL 1 STAGE 78017 12/13/10 INSERT LENS AT [facility] EXT 13.71 12/13/10 OTHER GROUP THERAPY 94.44 11/21/14 Infectious Disease Assmt/Plan - Problem List Patient Problems: All Active Problems BACK PAIN (Active 07/11/13) Weakness of limb (Active) M62.81 Cerebrovascular accident (Acute) I63.9 Chronic bronchitis (Acute) J42 Depressed affect (Acute) R45.89 Hypercholesteremia (Acute) E78.0 Obesity (Acute) E66.9 Osteoarthritis (Acute) M19.90 SLIP AND FALL WITH LOW BACK TRAUMA (Acute) - Assessment Assessment: IMPRESSION: 1. Bronchitis, rule out influenza. 2. Urinary tract infection, hematuria. 3. History of cerebrovascular accident. 4. Hypertension. RECOMMENDATIONS: Continue Levaquin.
[2017-07-28 01:56] LABS: INF A SCREEN NEG FOR INF A; INF B SCREEN NEG FOR INF B
[2017-07-28 06:41] LABS: HEMATOCRIT 40.8 % (41.0-60); HEMOGLOBIN 13.6 gm/dL (12-16); MEAN CELL VOLUME 92.9 fl (80-99); MEAN CORPUSCULAR HEMOGLOBIN 30.9 pg (27.0-31.0); MEAN CORPUSCULAR HGB CONC 33.2 pg (28.0-36.0); MEAN PLATELET VOLUME 7.5 fl; PLATELET COUNT 89 Th/cmm (150-400); RED BLOOD COUNT 4.39 Mil/cmm (3.80-5.80); RED CELL DISTRIBUTION WIDTH 13.8 % (11.5-20.0)
[2017-07-28 06:48] LABS: ANION GAP 9.3 (7.0-16.0); BUN - UREA NITROGEN 23 mg/dL (7-25); CALCIUM SERUM 7.6 mg/dL (8.6-10.3); CARBON DIOXIDE 23.9 mEq/L (21.0-31.0); CHLORIDE 106 mEq/L (98-107); CREATININE - SERUM 1.2 mg/dL (0.7-1.3); GLUCOSE 100 mg/dL (70-105); POTASSIUM SERUM 3.2 mEq/L (3.5-5.1); SODIUM SERUM 136 mEq/L (136-145)
[2017-07-28 07:33] LABS: WHITE BLOOD COUNT 1.7 Th/cmm (4.8-10.8)
[2017-07-28] MEDS: Pantoprazole 40 mg EC Tab PO SCH ×2 (09:55→17:34)
[2017-07-28 11:24] LABS: BAND NEUTROPHILE 0 % (0-10); MONOCYTE 15 % (2-10); TOTAL CELLS COUNTED 100
[2017-07-28 11:25] LABS: LYMPHOCYTE 40 % (20-50)
[2017-07-28 11:26] LABS: NEUTROPHILS 45 % (40-80); PLATELET ESTIMATE SLIGHT DECREASED (NORMAL)
--- NOTE | 2017-07-28 12:17 | Internal Medicine Prog Note ---
Internal Medicine Subjective - Subjective Service Date: 07/28/17 Patient is:: awake Per staff patient has:: no adverse event, tolerating meds Internal Medicine Objective - Results Result Diagrams: 07/28/17 05:53 07/28/17 05:53 Recent Labs: Laboratory Last Values WBC 1.7 Th/cmm (4.8-10.8) L* D 07/28/17 05:53 RBC 4.39 Mil/cmm (3.80-5.80) 07/28/17 05:53 Hgb 13.6 gm/dL (12-16) 07/28/17 05:53 Hct 40.8 % (41.0-60) L 07/28/17 05:53 MCV 92.9 fl (80-99) 07/28/17 05:53 MCH 30.9 pg (27.0-31.0) 07/28/17 05:53 MCHC Differential 33.2 pg (28.0-36.0) 07/28/17 05:53 RDW 13.8 % (11.5-20.0) 07/28/17 05:53 Plt Count 89 Th/cmm (150-400) L 07/28/17 05:53 MPV 7.5 fl 07/28/17 05:53 Neutrophils % 69.2 % (40.0-80.0) 07/26/17 06:40 Band Neutrophils % 0 % (0-10) 07/28/17 05:53 Lymphocytes % 16.0 % (20.0-50.0) L 07/26/17 06:40 Monocytes % 14.5 % (2.0-10.0) H 07/26/17 06:40 Eosinophils % 0.2 % (0.0-5.0) 07/26/17 06:40 Basophils % 0.1 % (0.0-2.0) 07/26/17 06:40 Neutrophils (Manual) 45 % (40-80) 07/28/17 05:53 Lymphocytes 40 % (20-50) 07/28/17 05:53 Monocytes 15 % (2-10) H 07/28/17 05:53 Platelet Estimate SLIGHT DECREASED (NORMAL) 07/28/17 05:53 PT 11.0 SECONDS (9.5-11.5) 07/25/17 14:07 INR 1.06 (0.5-1.4) 07/25/17 14:07 PTT (Actin FS) 26.0 SECONDS (26.0-38.0) 07/25/17 14:07 Sodium 136 mEq/L (136-145) 07/28/17 05:53 Potassium 3.2 mEq/L (3.5-5.1) L 07/28/17 05:53 Chloride 106 mEq/L (98-107) 07/28/17 05:53 Carbon Dioxide 23.9 mEq/L (21.0-31.0) 07/28/17 05:53 Anion Gap 9.3 (7.0-16.0) 07/28/17 05:53 BUN 23 mg/dL (7-25) 07/28/17 05:53 Creatinine 1.2 mg/dL (0.7-1.3) 07/28/17 05:53 Est GFR ( Amer) TNP 07/28/17 05:53 Est GFR (Non-Af Amer) TNP 07/28/17 05:53 BUN/Creatinine Ratio 19.2 07/28/17 05:53 Glucose 100 mg/dL (70-105) 07/28/17 05:53 Whole Bld Lactic Acid 1.19 mmol/L (0.60-1.99) 07/25/17 14:07 Calcium 7.6 mg/dL (8.6-10.3) L 07/28/17 05:53 Total Bilirubin 0.5 mg/dL (0.3-1.0) 07/25/17 14:07 AST 18 U/L (13-39) 07/25/17 14:07 ALT 13 U/L (7-52) 07/25/17 14:07 Alkaline Phosphatase 111 U/L (34-104) H 07/25/17 14:07 Creatine Kinase 50 U/L (30-223) 07/25/17 14:07 Troponin I 0.02 ng/mL (0.01-0.05) 07/25/17 14:07 Total Protein 6.7 gm/dL (6.0-8.3) 07/25/17 14:07 Albumin 3.7 gm/dL (4.2-5.5) L 07/25/17 14:07 Globulin 3.0 gm/dL 07/25/17 14:07 Albumin/Globulin Ratio 1.2 (1.0-1.8) 07/25/17 14:07 Triglycerides 91 mg/dL (<150) 07/26/17 06:40 Cholesterol 207 mg/dL (<200) H 07/26/17 06:40 LDL Cholesterol Direct 158 mg/dL (75-193) 07/26/17 06:40 HDL Cholesterol 45 mg/dL (23-92) 07/26/17 06:40 TSH 2.11 uIU/ml (0.34-5.60) 07/25/17 14:07 Urine Source MIDSTREAM 07/25/17 03:15 Urine Color YELLOW 07/25/17 03:15 Urine Clarity HAZY (CLEAR) 07/25/17 03:15 Urine pH 6.5 (4.6 - 8.0) 07/25/17 03:15 Ur Specific [place] 1.025 (1.005-1.030) 07/25/17 03:15 Urine Protein TRACE mg/dL (NEGATIVE) 07/25/17 03:15 Urine Glucose (UA) NEGATIVE mg/dL (NEGATIVE) 07/25/17 03:15 Urine Ketones TRACE mg/dL (NEGATIVE) 07/25/17 03:15 Urine Blood LARGE (NEGATIVE) H 07/25/17 03:15 Urine Nitrate NEGATIVE (NEGATIVE) 07/25/17 03:15 Urine Bilirubin NEGATIVE (NEGATIVE) 07/25/17 03:15 Urine Urobilinogen 0.2 E.U./dL (0.2 - 1.0) 07/25/17 03:15 Ur Leukocyte Esterase NEGATIVE (NEGATIVE) 07/25/17 03:15 Urine RBC 50-100 /hpf (0-5) H 07/25/17 03:15 Urine WBC 2-5 /hpf (0-5) H 07/25/17 03:15 Ur Epithelial Cells MODERATE /lpf (FEW) 07/25/17 03:15 Urine Bacteria FEW /hpf (NONE SEEN) 07/25/17 03:15 Hyaline Casts 2-5 /lpf (0-2) H 07/25/17 03:15 Urine Mucus MODERATE /lpf (FEW) 07/25/17 03:15 Influenza A (Rapid) NEG FOR INF A 07/28/17 01:26 Influenza B (Rapid) NEG FOR INF B 07/28/17 01:26 - Physical Exam Vitals and I&O: Vital Signs Temp 98.4 F 07/28/17 04:00 Pulse 70 07/28/17 09:55 Resp 18 07/28/17 04:00 BP 124/66 07/28/17 09:55 Pulse Ox 94 07/28/17 04:00 Intake & Output 07/27/17 07/28/17 07/28/17 18:59 06:59 18:59 Intake Total 1000 300 Balance 1000 300 Weight (lbs) 242 lb 3.2 oz 243 lb 11.2 oz Intake: Intake, IV Amount 1000 100 D5-0.45NS 1,000 ml @ 50 1000 mls/hr IV .Q20H [facility] Rx#: [id number] Levofloxacin 500mg/100mL 100 500 mg In 100 ml @ 100 mls/hr IV Q24HR [facility] Rx#: [id number] Oral 200 Other: # Voids 3 1 # Bowel Movements 0 0 Active Medications: Current Medications Acetaminophen (Tylenol) 650 mg PO Q4H PRN PRN Reason: PAIN AND OR FEVER Stop: 09/23/17 19:57 Baclofen (Lioresal) 10 mg PO DAILY [facility] Stop: 09/24/17 08:59 Last Admin: 07/28/17 09:55 Dose: 10 mg Clopidogrel Bisulfate (Plavix) 75 mg PO DAILY [facility] Stop: 09/24/17 08:59 Last Admin: 07/28/17 09:54 Dose: 75 mg Docusate Sodium (Colace) 500 mg PO BID [facility] Stop: 09/24/17 18:59 Last Admin: 07/28/17 09:54 Dose: 500 mg Furosemide (Lasix) 40 mg PO MWF [facility] Stop: 09/24/17 08:59 Last Admin: 07/28/17 09:54 Dose: 40 mg Dextrose/Sodium Chloride (D5-0.45ns) 1,000 mls @ 50 mls/hr IV .Q20H [facility] Stop: 09/23/17 19:49 Last Admin: 07/27/17 21:00 Dose: 50 mls/hr Levofloxacin (Levaquin Pb) 500 mg in 100 mls @ 100 mls/hr IV Q24HR [facility] Stop: 09/23/17 20:59 Last Infusion: 07/27/17 21:57 Dose: Infused Losartan Potassium (Cozaar) 50 mg PO DAILY [facility] Stop: 09/24/17 08:59 Last Admin: 07/28/17 09:55 Dose: 50 mg Ondansetron HCl (Zofran) 4 mg IV Q6H PRN PRN Reason: Nausea Stop: 09/23/17 19:45 Pantoprazole Sodium (Protonix) 40 mg PO BID [facility] Stop: 09/24/17 08:59 Last Admin: 07/28/17 09:55 Dose: 40 mg Tramadol HCl (Ultram) 50 mg PO ACHS [facility] Stop: 09/24/17 07:29 Last Admin: 07/28/17 06:37 Dose: 50 mg General: weak, alert, demented HEENT: NC/AT, PERRLA Neck: Supple Lungs: CTAB Cardiovascular: RRR, Normal S1, Normal S2 Abdomen: soft, non-tender, non-distended, positive bowel sound Neurological: alert - Procedures Procedures: Procedures Procedure Code Date APPLICATION OF SPLINT 93.54 04/01/07 APPLY FOREARM SPLINT 28608 04/01/07 CATARAC PHACOEMULS/ASPIR 13.41 12/13/10 CATARACT SURG W/IOL 1 STAGE 97046 12/13/10 INSERT LENS AT [facility] EXT 13.71 12/13/10 OTHER GROUP THERAPY 94.44 11/21/14 Internal Medicine Assmt/Plan - Assessment Assessment: aCUTE BRONCHITIS ACUTE UTI HEMATURIA HTN - Plan Plan: CONTINUE IVABX PER ID FOLLOW UP LABS IN AM CONTINUE CURRENT PLAN OF CARE
[2017-07-28] MEDS: D5-0.45NS 1,000 ML IV SCH (13:41)
--- NOTE | 2017-07-28 15:43 | Consultation ---
DATE OF CONSULTATION: 07/28/2017 HEMATOLOGY ONCOLOGY CONSULTATION REFERRED BY Dr. Madsen. REASON FOR CONSULTATION: Pancytopenia. The patient is a 71-year-old male who was admitted fever of 101 and persistent cough. He had associated weakness and diagnosed with bronchitis, started on IV antibiotics. He was found to have low white count on admission that continued to drop; therefore, I was asked to evaluate. PAST MEDICAL HISTORY: CVA, left hemiparesis, hypertension, dyslipidemia, peptic ulcer disease, arthritis, benign prostatic hypertrophy. MEDICATIONS: Reviewed. PHYSICAL EXAMINATION: GENERAL: He is awake. VITAL SIGNS: Temp now 99 from admission it was 101. HEENT: Atraumatic. NECK: No lymphadenopathy. CHEST: Good air entry. ABDOMEN: Obese, soft. EXTREMITIES: Contracture of the left upper and lower extremity, now resisting left hemiparesis. LABORATORY DATA: White count 1.7, hemoglobin 13.6, platelets 89. Creatinine 1.2, neutrophils are not decreased, his neutrophils are 70% and there is elevation of the monocytes. Coagulation panel normal. ASSESSMENT: Pancytopenia with elevated monocytes, most likely secondary to viral illness. Continue current management to monitor the blood count and I will obtain B12 and folic acid and ultrasound of the abdomen and NESS. If blood count remains depressed, I would consider bone marrow biopsy. Thank you, Dr. Madsen for the opportunity to participate in the care of this interesting case. JOB# [id number]
[2017-07-28] MEDS ORDERED: Morphine Sulfate 2 mg/mL 1mL Syr IV STA (16:29)
--- NOTE | 2017-07-28 16:29 | Infectious Disease Prog Note ---
Infectious Disease Subjective - Review of Systems Service Date: 07/28/17 Subjective: Doing well. c/o headache. Infectious Disease Objective - Results Result Diagrams: 07/28/17 05:53 07/28/17 05:53 Recent Labs: Laboratory Last Values WBC 1.7 Th/cmm (4.8-10.8) L* D 07/28/17 05:53 RBC 4.39 Mil/cmm (3.80-5.80) 07/28/17 05:53 Hgb 13.6 gm/dL (12-16) 07/28/17 05:53 Hct 40.8 % (41.0-60) L 07/28/17 05:53 MCV 92.9 fl (80-99) 07/28/17 05:53 MCH 30.9 pg (27.0-31.0) 07/28/17 05:53 MCHC Differential 33.2 pg (28.0-36.0) 07/28/17 05:53 RDW 13.8 % (11.5-20.0) 07/28/17 05:53 Plt Count 89 Th/cmm (150-400) L 07/28/17 05:53 MPV 7.5 fl 07/28/17 05:53 Neutrophils % 69.2 % (40.0-80.0) 07/26/17 06:40 Band Neutrophils % 0 % (0-10) 07/28/17 05:53 Lymphocytes % 16.0 % (20.0-50.0) L 07/26/17 06:40 Monocytes % 14.5 % (2.0-10.0) H 07/26/17 06:40 Eosinophils % 0.2 % (0.0-5.0) 07/26/17 06:40 Basophils % 0.1 % (0.0-2.0) 07/26/17 06:40 Neutrophils (Manual) 45 % (40-80) 07/28/17 05:53 Lymphocytes 40 % (20-50) 07/28/17 05:53 Monocytes 15 % (2-10) H 07/28/17 05:53 Platelet Estimate SLIGHT DECREASED (NORMAL) 07/28/17 05:53 PT 11.0 SECONDS (9.5-11.5) 07/25/17 14:07 INR 1.06 (0.5-1.4) 07/25/17 14:07 PTT (Actin FS) 26.0 SECONDS (26.0-38.0) 07/25/17 14:07 Sodium 136 mEq/L (136-145) 07/28/17 05:53 Potassium 3.2 mEq/L (3.5-5.1) L 07/28/17 05:53 Chloride 106 mEq/L (98-107) 07/28/17 05:53 Carbon Dioxide 23.9 mEq/L (21.0-31.0) 07/28/17 05:53 Anion Gap 9.3 (7.0-16.0) 07/28/17 05:53 BUN 23 mg/dL (7-25) 07/28/17 05:53 Creatinine 1.2 mg/dL (0.7-1.3) 07/28/17 05:53 Est GFR ( Amer) TNP 07/28/17 05:53 Est GFR (Non-Af Amer) TNP 07/28/17 05:53 BUN/Creatinine Ratio 19.2 07/28/17 05:53 Glucose 100 mg/dL (70-105) 07/28/17 05:53 Whole Bld Lactic Acid 1.19 mmol/L (0.60-1.99) 07/25/17 14:07 Calcium 7.6 mg/dL (8.6-10.3) L 07/28/17 05:53 Total Bilirubin 0.5 mg/dL (0.3-1.0) 07/25/17 14:07 AST 18 U/L (13-39) 07/25/17 14:07 ALT 13 U/L (7-52) 07/25/17 14:07 Alkaline Phosphatase 111 U/L (34-104) H 07/25/17 14:07 Creatine Kinase 50 U/L (30-223) 07/25/17 14:07 Troponin I 0.02 ng/mL (0.01-0.05) 07/25/17 14:07 Total Protein 6.7 gm/dL (6.0-8.3) 07/25/17 14:07 Albumin 3.7 gm/dL (4.2-5.5) L 07/25/17 14:07 Globulin 3.0 gm/dL 07/25/17 14:07 Albumin/Globulin Ratio 1.2 (1.0-1.8) 07/25/17 14:07 Triglycerides 91 mg/dL (<150) 07/26/17 06:40 Cholesterol 207 mg/dL (<200) H 07/26/17 06:40 LDL Cholesterol Direct 158 mg/dL (75-193) 07/26/17 06:40 HDL Cholesterol 45 mg/dL (23-92) 07/26/17 06:40 TSH 2.11 uIU/ml (0.34-5.60) 07/25/17 14:07 Urine Source MIDSTREAM 07/25/17 03:15 Urine Color YELLOW 07/25/17 03:15 Urine Clarity HAZY (CLEAR) 07/25/17 03:15 Urine pH 6.5 (4.6 - 8.0) 07/25/17 03:15 Ur Specific [place] 1.025 (1.005-1.030) 07/25/17 03:15 Urine Protein TRACE mg/dL (NEGATIVE) 07/25/17 03:15 Urine Glucose (UA) NEGATIVE mg/dL (NEGATIVE) 07/25/17 03:15 Urine Ketones TRACE mg/dL (NEGATIVE) 07/25/17 03:15 Urine Blood LARGE (NEGATIVE) H 07/25/17 03:15 Urine Nitrate NEGATIVE (NEGATIVE) 07/25/17 03:15 Urine Bilirubin NEGATIVE (NEGATIVE) 07/25/17 03:15 Urine Urobilinogen 0.2 E.U./dL (0.2 - 1.0) 07/25/17 03:15 Ur Leukocyte Esterase NEGATIVE (NEGATIVE) 07/25/17 03:15 Urine RBC 50-100 /hpf (0-5) H 07/25/17 03:15 Urine WBC 2-5 /hpf (0-5) H 07/25/17 03:15 Ur Epithelial Cells MODERATE /lpf (FEW) 07/25/17 03:15 Urine Bacteria FEW /hpf (NONE SEEN) 07/25/17 03:15 Hyaline Casts 2-5 /lpf (0-2) H 07/25/17 03:15 Urine Mucus MODERATE /lpf (FEW) 07/25/17 03:15 Influenza A (Rapid) NEG FOR INF A 07/28/17 01:26 Influenza B (Rapid) NEG FOR INF B 07/28/17 01:26 - Physical Exam Vitals and I&O: Vital Signs Temp 98.4 F 07/28/17 04:00 Pulse 70 07/28/17 09:55 Resp 18 07/28/17 04:00 BP 124/66 07/28/17 09:55 Pulse Ox 94 07/28/17 04:00 Intake & Output 07/27/17 07/28/17 07/28/17 18:59 06:59 18:59 Intake Total 1000 300 834.167 Balance 1000 300 834.167 Weight (lbs) 109.86 kg 110.54 kg Intake: Intake, IV Amount 1000 100 834.167 D5-0.45NS 1,000 ml @ 50 1000 834.167 mls/hr IV .Q20H [facility] Rx#: [id number] Levofloxacin 500mg/100mL 100 500 mg In 100 ml @ 100 mls/hr IV Q24HR [facility] Rx#: [id number] Oral 200 Other: # Voids 3 1 # Bowel Movements 0 0 Active Medications: Current Medications Acetaminophen (Tylenol) 650 mg PO Q4H PRN PRN Reason: PAIN AND OR FEVER Stop: 09/23/17 19:57 Baclofen (Lioresal) 10 mg PO DAILY [facility] Stop: 09/24/17 08:59 Last Admin: 07/28/17 09:55 Dose: 10 mg Clopidogrel Bisulfate (Plavix) 75 mg PO DAILY [facility] Stop: 09/24/17 08:59 Last Admin: 07/28/17 09:54 Dose: 75 mg Docusate Sodium (Colace) 500 mg PO BID [facility]IG[facility]EL Stop: 09/24/17 18:59 Last Admin: 07/28/17 09:54 Dose: 500 mg Furosemide (Lasix) 40 mg PO MWF [facility] Stop: 09/24/17 08:59 Last Admin: 07/28/17 09:54 Dose: 40 mg Dextrose/Sodium Chloride (D5-0.45ns) 1,000 mls @ 50 mls/hr IV .Q20H [facility] Stop: 09/23/17 19:49 Last Admin: 07/28/17 13:41 Dose: 50 mls/hr Levofloxacin (Levaquin Pb) 500 mg in 100 mls @ 100 mls/hr IV Q24HR [facility] Stop: 09/23/17 20:59 Last Infusion: 07/27/17 21:57 Dose: Infused Losartan Potassium (Cozaar) 50 mg PO DAILY [facility] Stop: 09/24/17 08:59 Last Admin: 07/28/17 09:55 Dose: 50 mg Ondansetron HCl (Zofran) 4 mg IV Q6H PRN PRN Reason: Nausea Stop: 09/23/17 19:45 Pantoprazole Sodium (Protonix) 40 mg PO BID [facility] Stop: 09/24/17 08:59 Last Admin: 07/28/17 09:55 Dose: 40 mg Tramadol HCl (Ultram) 50 mg PO ACHS [facility] Stop: 09/24/17 07:29 Last Admin: 07/28/17 13:45 Dose: 50 mg General: no acute distress, well developed, well nourished HEENT: normocephalic Cardiovascular: S1S2, regular Lungs: clear to auscultation bilaterally, clear to percussion Abdomen: soft, no tender, no distended, no hepatomegaly Extremities: no cyanosis, no clubbing, no edema Neurological: awake, alert, oriented - Procedures Procedures: Procedures Procedure Code Date APPLICATION OF SPLINT 93.54 04/01/07 APPLY FOREARM SPLINT 54903 04/01/07 CATARAC PHACOEMULS/ASPIR 13.41 12/13/10 CATARACT SURG W/IOL 1 STAGE 96660 12/13/10 INSERT LENS AT CATAR EXT 13.71 12/13/10 OTHER GROUP THERAPY 94.44 11/21/14 Infectious Disease Assmt/Plan - Problem List Patient Problems: All Active Problems BACK PAIN (Active 07/11/13) Weakness of limb (Active) M62.81 Cerebrovascular accident (Acute) I63.9 Chronic bronchitis (Acute) J42 Depressed affect (Acute) R45.89 Hypercholesteremia (Acute) E78.0 Obesity (Acute) E66.9 Osteoarthritis (Acute) M19.90 SLIP AND FALL WITH LOW BACK TRAUMA (Acute) - Assessment Assessment: IMPRESSION: 1. Bronchitis, rule out influenza. 2. Urinary tract infection, hematuria. 3. History of cerebrovascular accident. 4. Hypertension. 5. Headache. RECOMMENDATIONS: Continue Levaquin. tylenol.
[2017-07-28] MEDS: Levofloxacin 500mg/100mL 500 MG/100 ML BAG IV SCH (21:05)
[2017-07-29 06:41] LABS: HEMATOCRIT 39.3 % (41.0-60); HEMOGLOBIN 13.5 gm/dL (12-16); LYMPHOCYTE ABSOLUTE 0.6 Th/cmm (1.5-3.0); MEAN CELL VOLUME 92.4 fl (80-99); MEAN CORPUSCULAR HEMOGLOBIN 31.6 pg (27.0-31.0); MEAN CORPUSCULAR HGB CONC 34.2 pg (28.0-36.0); MEAN PLATELET VOLUME 7.5 fl; MONOCYTE ABSOLUTE 0.2 Th/cmm (0.3-1.0); NEUTROPHILE ABSOLUTE 1.2 Th/cmm (1.8-8.0); PLATELET COUNT 81 Th/cmm (150-400); RED BLOOD COUNT 4.25 Mil/cmm (3.80-5.80); RED CELL DISTRIBUTION WIDTH 13.8 % (11.5-20.0)
[2017-07-29 08:40] LABS: BAND NEUTROPHILE 8 % (0-10); LYMPHOCYTE 21 % (20-50); MONOCYTE 14 % (2-10); NEUTROPHILS 57 % (40-80); TOTAL CELLS COUNTED 100
[2017-07-29 08:41] LABS: PLATELET ESTIMATE DECREASED PLATELETS (NORMAL)
[2017-07-29] MEDS: Pantoprazole 40 mg EC Tab PO SCH ×2 (10:03→16:54)
--- NOTE | 2017-07-29 10:25 | Diagnostic Imaging Report ---
Ultrasound abdomen HISTORY: Splenomegaly COMPARISON: Renal ultrasound on 07/29/2017 Technique: Sonography of the abdomen was performed in multiple planes. FINDINGS: Exam is limited due to body habitus and bowel gas. The liver demonstrates normal echogenicity. The liver margins are not well-defined however no evidence of focal lesions. The liver measures 16.2 cm. No evidence of gallstones or gallbladder wall thickening. The common bile duct measures 4 mm. Evaluation of the pancreas is limited due to bowel gas. The right kidney measures 13.7 x 7.7 4 cm. The left kidney measures 11.0 x 5.7 cm. The renal margins were not well-defined however no obvious focal lesions or evidence of hydronephrosis. The spleen measures 16.6 x 5.8 cm. No obvious focal lesions based on the limited views provided. Abdominal aorta was not well visualized. IMPRESSION: Limited exam due to body habitus and bowel gas. Splenomegaly with spleen measuring 16.6 x 5.8 cm. Mildly prominent right kidney. No evidence of hydronephrosis.
--- NOTE | 2017-07-29 13:25 | General Progress Note ---
Subjective - Review of Systems Service Date: 07/29/17 Objective - Results Result Diagrams: 07/29/17 06:15 07/28/17 05:53 Recent Labs: Laboratory Last Values WBC 2.0 Th/cmm (4.8-10.8) L* 07/29/17 06:15 RBC 4.25 Mil/cmm (3.80-5.80) 07/29/17 06:15 Hgb 13.5 gm/dL (12-16) 07/29/17 06:15 Hct 39.3 % (41.0-60) L 07/29/17 06:15 MCV 92.4 fl (80-99) 07/29/17 06:15 MCH 31.6 pg (27.0-31.0) H 07/29/17 06:15 MCHC Differential 34.2 pg (28.0-36.0) 07/29/17 06:15 RDW 13.8 % (11.5-20.0) 07/29/17 06:15 Plt Count 81 Th/cmm (150-400) L 07/29/17 06:15 MPV 7.5 fl 07/29/17 06:15 Neutrophils % 69.2 % (40.0-80.0) 07/26/17 06:40 Band Neutrophils % 8 % (0-10) 07/29/17 06:15 Lymphocytes % 16.0 % (20.0-50.0) L 07/26/17 06:40 Monocytes % 14.5 % (2.0-10.0) H 07/26/17 06:40 Eosinophils % 0.2 % (0.0-5.0) 07/26/17 06:40 Basophils % 0.1 % (0.0-2.0) 07/26/17 06:40 Neutrophils (Manual) 57 % (40-80) 07/29/17 06:15 Lymphocytes 21 % (20-50) 07/29/17 06:15 Monocytes 14 % (2-10) H 07/29/17 06:15 Platelet Estimate DECREASED PLATELETS (NORMAL) 07/29/17 06:15 PT 11.0 SECONDS (9.5-11.5) 07/25/17 14:07 INR 1.06 (0.5-1.4) 07/25/17 14:07 PTT (Actin FS) 26.0 SECONDS (26.0-38.0) 07/25/17 14:07 Sodium 136 mEq/L (136-145) 07/28/17 05:53 Potassium 3.2 mEq/L (3.5-5.1) L 07/28/17 05:53 Chloride 106 mEq/L (98-107) 07/28/17 05:53 Carbon Dioxide 23.9 mEq/L (21.0-31.0) 07/28/17 05:53 Anion Gap 9.3 (7.0-16.0) 07/28/17 05:53 BUN 23 mg/dL (7-25) 07/28/17 05:53 Creatinine 1.2 mg/dL (0.7-1.3) 07/28/17 05:53 Est GFR ( Amer) TNP 07/28/17 05:53 Est GFR (Non-Af Amer) TNP 07/28/17 05:53 BUN/Creatinine Ratio 19.2 07/28/17 05:53 Glucose 100 mg/dL (70-105) 07/28/17 05:53 Whole Bld Lactic Acid 1.19 mmol/L (0.60-1.99) 07/25/17 14:07 Calcium 7.6 mg/dL (8.6-10.3) L 07/28/17 05:53 Total Bilirubin 0.5 mg/dL (0.3-1.0) 07/25/17 14:07 AST 18 U/L (13-39) 07/25/17 14:07 ALT 13 U/L (7-52) 07/25/17 14:07 Alkaline Phosphatase 111 U/L (34-104) H 07/25/17 14:07 Creatine Kinase 50 U/L (30-223) 07/25/17 14:07 Troponin I 0.02 ng/mL (0.01-0.05) 07/25/17 14:07 Total Protein 6.7 gm/dL (6.0-8.3) 07/25/17 14:07 Albumin 3.7 gm/dL (4.2-5.5) L 07/25/17 14:07 Globulin 3.0 gm/dL 07/25/17 14:07 Albumin/Globulin Ratio 1.2 (1.0-1.8) 07/25/17 14:07 Triglycerides 91 mg/dL (<150) 07/26/17 06:40 Cholesterol 207 mg/dL (<200) H 07/26/17 06:40 LDL Cholesterol Direct 158 mg/dL (75-193) 07/26/17 06:40 HDL Cholesterol 45 mg/dL (23-92) 07/26/17 06:40 TSH 2.11 uIU/ml (0.34-5.60) 07/25/17 14:07 Urine Source MIDSTREAM 07/25/17 03:15 Urine Color YELLOW 07/25/17 03:15 Urine Clarity HAZY (CLEAR) 07/25/17 03:15 Urine pH 6.5 (4.6 - 8.0) 07/25/17 03:15 Ur Specific [place] 1.025 (1.005-1.030) 07/25/17 03:15 Urine Protein TRACE mg/dL (NEGATIVE) 07/25/17 03:15 Urine Glucose (UA) NEGATIVE mg/dL (NEGATIVE) 07/25/17 03:15 Urine Ketones TRACE mg/dL (NEGATIVE) 07/25/17 03:15 Urine Blood LARGE (NEGATIVE) H 07/25/17 03:15 Urine Nitrate NEGATIVE (NEGATIVE) 07/25/17 03:15 Urine Bilirubin NEGATIVE (NEGATIVE) 07/25/17 03:15 Urine Urobilinogen 0.2 E.U./dL (0.2 - 1.0) 07/25/17 03:15 Ur Leukocyte Esterase NEGATIVE (NEGATIVE) 07/25/17 03:15 Urine RBC 50-100 /hpf (0-5) H 07/25/17 03:15 Urine WBC 2-5 /hpf (0-5) H 07/25/17 03:15 Ur Epithelial Cells MODERATE /lpf (FEW) 07/25/17 03:15 Urine Bacteria FEW /hpf (NONE SEEN) 07/25/17 03:15 Hyaline Casts 2-5 /lpf (0-2) H 07/25/17 03:15 Urine Mucus MODERATE /lpf (FEW) 07/25/17 03:15 Influenza A (Rapid) NEG FOR INF A 07/28/17 01:26 Influenza B (Rapid) NEG FOR INF B 07/28/17 01:26 - Physical Exam Vitals and I&O: Vital Signs Temp 98.4 F 07/29/17 04:00 Pulse 80 07/29/17 09:59 Resp 20 07/29/17 04:00 BP 132/70 07/29/17 09:59 Pulse Ox 98 07/29/17 04:00 Intake & Output 07/28/17 07/29/17 07/29/17 18:59 06:59 18:59 Intake Total 834.167 580 Balance 834.167 580 Weight (lbs) 110.223 kg Intake: Intake, IV Amount 834.167 100 D5-0.45NS 1,000 ml @ 50 834.167 mls/hr IV .Q20H [facility] Rx#: [id number] Levofloxacin 500mg/100mL 100 500 mg In 100 ml @ 100 mls/hr IV Q24HR [facility] Rx#: [id number] Oral 480 Active Medications: Current Medications Acetaminophen (Tylenol) 650 mg PO Q4H PRN PRN Reason: FEVER Stop: 09/23/17 19:57 Acetaminophen (Tylenol) 325 mg PO Q4HR PRN PRN Reason: Pain (Mild) Stop: 09/26/17 16:27 Baclofen (Lioresal) 10 mg PO DAILY [facility] Stop: 09/24/17 08:59 Last Admin: 07/29/17 10:02 Dose: 10 mg Clopidogrel Bisulfate (Plavix) 75 mg PO DAILY [facility] Stop: 09/24/17 08:59 Last Admin: 07/29/17 09:59 Dose: 75 mg Docusate Sodium (Colace) 500 mg PO BID [facility]IGUEL Stop: 09/24/17 18:59 Last Admin: 07/29/17 09:59 Dose: 500 mg Furosemide (Lasix) 40 mg PO MWF [facility] Stop: 09/24/17 08:59 Last Admin: 07/28/17 09:54 Dose: 40 mg Dextrose/Sodium Chloride (D5-0.45ns) 1,000 mls @ 50 mls/hr IV .Q20H [facility] Stop: 09/23/17 19:49 Last Admin: 07/28/17 13:41 Dose: 50 mls/hr Levofloxacin (Levaquin Pb) 500 mg in 100 mls @ 100 mls/hr IV Q24HR [facility] Stop: 09/23/17 20:59 Last Infusion: 07/28/17 22:05 Dose: Infused Losartan Potassium (Cozaar) 50 mg PO DAILY [facility] Stop: 09/24/17 08:59 Last Admin: 07/29/17 09:59 Dose: 50 mg Ondansetron HCl (Zofran) 4 mg IV Q6H PRN PRN Reason: Nausea Stop: 09/23/17 19:45 Pantoprazole Sodium (Protonix) 40 mg PO BID [facility] Stop: 09/24/17 08:59 Last Admin: 07/29/17 10:03 Dose: 40 mg Tramadol HCl (Ultram) 50 mg PO ACHS [facility] Stop: 09/24/17 07:29 Last Admin: 07/29/17 11:36 Dose: 50 mg General: Alert HEENT: Atraumatic Neck: Supple Cardiovascular: Regular rate Abdomen: Soft Neurological: Other (left hemiparesis) - Procedures Procedures: Procedures Procedure Code Date APPLICATION OF SPLINT 93.54 04/01/07 APPLY FOREARM SPLINT 63202 04/01/07 CATARAC PHACOEMULS/ASPIR 13.41 12/13/10 CATARACT SURG W/IOL 1 STAGE 95908 12/13/10 INSERT LENS AT CATAR EXT 13.71 12/13/10 OTHER GROUP THERAPY 94.44 11/21/14 Assessment/Plan - Problem List Patient Problems: All Active Problems BACK PAIN (Active 07/11/13) Weakness of limb (Active) M62.81 Cerebrovascular accident (Acute) I63.9 Chronic bronchitis (Acute) J42 Depressed affect (Acute) R45.89 Hypercholesteremia (Acute) E78.0 Obesity (Acute) E66.9 Osteoarthritis (Acute) M19.90 SLIP AND FALL WITH LOW BACK TRAUMA (Acute) - Assessment Assessment: * Leukopenia/ thrombocytopenia secondary to spenomegaly * Monocytosis sec to viral illness * Splenomegaly monitor b12, folic acid No transfusion needed
[2017-07-29] MEDS: D5-0.45NS 1,000 ML IV SCH (16:55)
--- NOTE | 2017-07-29 17:24 | Infectious Disease Prog Note ---
Infectious Disease Subjective - Review of Systems Service Date: 07/29/17 Subjective: Doing well. Infectious Disease Objective - Results Result Diagrams: 07/29/17 06:15 07/28/17 05:53 Recent Labs: Laboratory Last Values WBC 2.0 Th/cmm (4.8-10.8) L* 07/29/17 06:15 RBC 4.25 Mil/cmm (3.80-5.80) 07/29/17 06:15 Hgb 13.5 gm/dL (12-16) 07/29/17 06:15 Hct 39.3 % (41.0-60) L 07/29/17 06:15 MCV 92.4 fl (80-99) 07/29/17 06:15 MCH 31.6 pg (27.0-31.0) H 07/29/17 06:15 MCHC Differential 34.2 pg (28.0-36.0) 07/29/17 06:15 RDW 13.8 % (11.5-20.0) 07/29/17 06:15 Plt Count 81 Th/cmm (150-400) L 07/29/17 06:15 MPV 7.5 fl 07/29/17 06:15 Neutrophils % 69.2 % (40.0-80.0) 07/26/17 06:40 Band Neutrophils % 8 % (0-10) 07/29/17 06:15 Lymphocytes % 16.0 % (20.0-50.0) L 07/26/17 06:40 Monocytes % 14.5 % (2.0-10.0) H 07/26/17 06:40 Eosinophils % 0.2 % (0.0-5.0) 07/26/17 06:40 Basophils % 0.1 % (0.0-2.0) 07/26/17 06:40 Neutrophils (Manual) 57 % (40-80) 07/29/17 06:15 Lymphocytes 21 % (20-50) 07/29/17 06:15 Monocytes 14 % (2-10) H 07/29/17 06:15 Platelet Estimate DECREASED PLATELETS (NORMAL) 07/29/17 06:15 PT 11.0 SECONDS (9.5-11.5) 07/25/17 14:07 INR 1.06 (0.5-1.4) 07/25/17 14:07 PTT (Actin FS) 26.0 SECONDS (26.0-38.0) 07/25/17 14:07 Sodium 136 mEq/L (136-145) 07/28/17 05:53 Potassium 3.2 mEq/L (3.5-5.1) L 07/28/17 05:53 Chloride 106 mEq/L (98-107) 07/28/17 05:53 Carbon Dioxide 23.9 mEq/L (21.0-31.0) 07/28/17 05:53 Anion Gap 9.3 (7.0-16.0) 07/28/17 05:53 BUN 23 mg/dL (7-25) 07/28/17 05:53 Creatinine 1.2 mg/dL (0.7-1.3) 07/28/17 05:53 Est GFR ( Amer) TNP 07/28/17 05:53 Est GFR (Non-Af Amer) TNP 07/28/17 05:53 BUN/Creatinine Ratio 19.2 07/28/17 05:53 Glucose 100 mg/dL (70-105) 07/28/17 05:53 Whole Bld Lactic Acid 1.19 mmol/L (0.60-1.99) 07/25/17 14:07 Calcium 7.6 mg/dL (8.6-10.3) L 07/28/17 05:53 Total Bilirubin 0.5 mg/dL (0.3-1.0) 07/25/17 14:07 AST 18 U/L (13-39) 07/25/17 14:07 ALT 13 U/L (7-52) 07/25/17 14:07 Alkaline Phosphatase 111 U/L (34-104) H 07/25/17 14:07 Creatine Kinase 50 U/L (30-223) 07/25/17 14:07 Troponin I 0.02 ng/mL (0.01-0.05) 07/25/17 14:07 Total Protein 6.7 gm/dL (6.0-8.3) 07/25/17 14:07 Albumin 3.7 gm/dL (4.2-5.5) L 07/25/17 14:07 Globulin 3.0 gm/dL 07/25/17 14:07 Albumin/Globulin Ratio 1.2 (1.0-1.8) 07/25/17 14:07 Triglycerides 91 mg/dL (<150) 07/26/17 06:40 Cholesterol 207 mg/dL (<200) H 07/26/17 06:40 LDL Cholesterol Direct 158 mg/dL (75-193) 07/26/17 06:40 HDL Cholesterol 45 mg/dL (23-92) 07/26/17 06:40 TSH 2.11 uIU/ml (0.34-5.60) 07/25/17 14:07 Urine Source MIDSTREAM 07/25/17 03:15 Urine Color YELLOW 07/25/17 03:15 Urine Clarity HAZY (CLEAR) 07/25/17 03:15 Urine pH 6.5 (4.6 - 8.0) 07/25/17 03:15 Ur Specific [place] 1.025 (1.005-1.030) 07/25/17 03:15 Urine Protein TRACE mg/dL (NEGATIVE) 07/25/17 03:15 Urine Glucose (UA) NEGATIVE mg/dL (NEGATIVE) 07/25/17 03:15 Urine Ketones TRACE mg/dL (NEGATIVE) 07/25/17 03:15 Urine Blood LARGE (NEGATIVE) H 07/25/17 03:15 Urine Nitrate NEGATIVE (NEGATIVE) 07/25/17 03:15 Urine Bilirubin NEGATIVE (NEGATIVE) 07/25/17 03:15 Urine Urobilinogen 0.2 E.U./dL (0.2 - 1.0) 07/25/17 03:15 Ur Leukocyte Esterase NEGATIVE (NEGATIVE) 07/25/17 03:15 Urine RBC 50-100 /hpf (0-5) H 07/25/17 03:15 Urine WBC 2-5 /hpf (0-5) H 07/25/17 03:15 Ur Epithelial Cells MODERATE /lpf (FEW) 07/25/17 03:15 Urine Bacteria FEW /hpf (NONE SEEN) 07/25/17 03:15 Hyaline Casts 2-5 /lpf (0-2) H 07/25/17 03:15 Urine Mucus MODERATE /lpf (FEW) 07/25/17 03:15 Influenza A (Rapid) NEG FOR INF A 07/28/17 01:26 Influenza B (Rapid) NEG FOR INF B 07/28/17 01:26 - Physical Exam Vitals and I&O: Vital Signs Temp 98 F 07/29/17 16:00 Pulse 76 07/29/17 16:00 Resp 20 07/29/17 16:00 BP 122/62 07/29/17 16:00 Pulse Ox 95 07/29/17 16:00 Intake & Output 07/28/17 07/29/17 07/29/17 18:59 06:59 18:59 Intake Total 834.434 564 6547 Balance 834.890 605 7995 Weight (lbs) 110.223 kg Intake: Intake, IV Amount 834.836 835 4327 D5-0.45NS 1,000 ml @ 50 015.637 9081 mls/hr IV .Q20H [facility] Rx#: [id number] Levofloxacin 500mg/100mL 100 500 mg In 100 ml @ 100 mls/hr IV Q24HR [facility] Rx#: [id number] Oral 480 Active Medications: Current Medications Acetaminophen (Tylenol) 650 mg PO Q4H PRN PRN Reason: FEVER Stop: 09/23/17 19:57 Acetaminophen (Tylenol) 325 mg PO Q4HR PRN PRN Reason: Pain (Mild) Stop: 09/26/17 16:27 Baclofen (Lioresal) 10 mg PO DAILY [facility] Stop: 09/24/17 08:59 Last Admin: 07/29/17 10:02 Dose: 10 mg Clopidogrel Bisulfate (Plavix) 75 mg PO DAILY [facility]IGU[facility] Stop: 09/24/17 08:59 Last Admin: 07/29/17 09:59 Dose: 75 mg Docusate Sodium (Colace) 500 mg PO BID [facility] MIGUEL Stop: 09/24/17 18:59 Last Admin: 07/29/17 16:55 Dose: 500 mg Furosemide (Lasix) 40 mg PO MWF [facility]IGU[facility] Stop: 09/24/17 08:59 Last Admin: 07/28/17 09:54 Dose: 40 mg Dextrose/Sodium Chloride (D5-0.45ns) 1,000 mls @ 50 mls/hr IV .Q20H JOSÉ MIGUEL Stop: 09/23/17 19:49 Last Admin: 07/29/17 16:55 Dose: 50 mls/hr Levofloxacin (Levaquin Pb) 500 mg in 100 mls @ 100 mls/hr IV Q24HR [facility] MIGUEL Stop: 09/23/17 20:59 Last Infusion: 07/28/17 22:05 Dose: Infused Losartan Potassium (Cozaar) 50 mg PO DAILY [facility] Stop: 09/24/17 08:59 Last Admin: 07/29/17 09:59 Dose: 50 mg Ondansetron HCl (Zofran) 4 mg IV Q6H PRN PRN Reason: Nausea Stop: 09/23/17 19:45 Pantoprazole Sodium (Protonix) 40 mg PO BID J[facility] MIGUEL Stop: 09/24/17 08:59 Last Admin: 07/29/17 16:54 Dose: 40 mg Tramadol HCl (Ultram) 50 mg PO ACHS [facility] Stop: 09/24/17 07:29 Last Admin: 07/29/17 16:55 Dose: 50 mg General: no acute distress, well developed, well nourished HEENT: atraumatic, normocephalic, PERRLA, EOMI, moist mucous membrane Neck: supple, no thyromegaly, no lymphadenopathy Cardiovascular: S1S2, regular Lungs: clear to auscultation bilaterally, clear to percussion Abdomen: soft, no tender, no distended, no mass Extremities: no cyanosis, no clubbing, no edema Neurological: awake, alert, oriented Skin: intact - Procedures Procedures: Procedures Procedure Code Date APPLICATION OF SPLINT 93.54 04/01/07 APPLY FOREARM SPLINT 09038 04/01/07 CATARAC PHACOEMULS/ASPIR 13.41 12/13/10 CATARACT SURG W/IOL 1 STAGE 99573 12/13/10 INSERT LENS AT CATAR EXT 13.71 12/13/10 OTHER GROUP THERAPY 94.44 11/21/14 Infectious Disease Assmt/Plan - Problem List Patient Problems: All Active Problems BACK PAIN (Active 07/11/13) Weakness of limb (Active) M62.81 Cerebrovascular accident (Acute) I63.9 Chronic bronchitis (Acute) J42 Depressed affect (Acute) R45.89 Hypercholesteremia (Acute) E78.0 Obesity (Acute) E66.9 Osteoarthritis (Acute) M19.90 SLIP AND FALL WITH LOW BACK TRAUMA (Acute) - Assessment Assessment: IMPRESSION: 1. Bronchitis, rule out influenza. 2. Urinary tract infection, hematuria. 3. History of cerebrovascular accident. 4. Hypertension. 5. Headache. RECOMMENDATIONS: Continue Levaquin.
[2017-07-29] MEDS: Levofloxacin 500mg/100mL 500 MG/100 ML BAG IV SCH (21:00)
--- NOTE | 2017-07-29 22:36 | Progress Notes ---
DATE: 07/29/2017 SUBJECTIVE: The patient was seen in his room lying in a bed. Per patient, he feels weak, but denies any pain or discomfort at this time, otherwise the patient appears to be in no acute distress. OBJECTIVE: VITAL SIGNS: Temperature 98.4, heart rate 82, blood pressure is 114/71, respiration of 20, 98% on room air. HEENT: Head is atraumatic and normocephalic. Eyes: Bilateral conjunctivae are clear. Bilateral pupils are equally round and reactive. NECK: Supple. No JVD. CARDIOVASCULAR: S1 and S2, without murmur. PULMONARY: Mild inspiratory wheezing noted. GASTROINTESTINAL: Soft and nontender without guarding. Positive bowel sounds. MUSCULOSKELETAL: No clubbing, no cyanosis noted. ASSESSMENT: 1. Bronchitis. 2. Urinary tract infection. 3. Hypertension. 4. Obesity. 5. History of cerebrovascular accident. PLAN: We will continue to monitor and keep the patient inpatient and monitor the patient's progress. We will follow up with ID doctor for IV antibiotic management. We are also going to monitor patient's nutritional status. Treatment plans were discussed with the patient's nurse. Treatment plans were discussed with Dr. Madsen. JOB# [id number]
[2017-07-30] MEDS: Pantoprazole 40 mg EC Tab PO SCH ×2 (08:42→17:31)
--- NOTE | 2017-07-30 10:43 | General Progress Note ---
Subjective - Review of Systems Events since last encounter: in no acute distress still weak denies pain Objective - Results Result Diagrams: 07/29/17 06:15 07/28/17 05:53 Recent Labs: Laboratory Last Values WBC 2.0 Th/cmm (4.8-10.8) L* 07/29/17 06:15 RBC 4.25 Mil/cmm (3.80-5.80) 07/29/17 06:15 Hgb 13.5 gm/dL (12-16) 07/29/17 06:15 Hct 39.3 % (41.0-60) L 07/29/17 06:15 MCV 92.4 fl (80-99) 07/29/17 06:15 MCH 31.6 pg (27.0-31.0) H 07/29/17 06:15 MCHC Differential 34.2 pg (28.0-36.0) 07/29/17 06:15 RDW 13.8 % (11.5-20.0) 07/29/17 06:15 Plt Count 81 Th/cmm (150-400) L 07/29/17 06:15 MPV 7.5 fl 07/29/17 06:15 Neutrophils % 69.2 % (40.0-80.0) 07/26/17 06:40 Band Neutrophils % 8 % (0-10) 07/29/17 06:15 Lymphocytes % 16.0 % (20.0-50.0) L 07/26/17 06:40 Monocytes % 14.5 % (2.0-10.0) H 07/26/17 06:40 Eosinophils % 0.2 % (0.0-5.0) 07/26/17 06:40 Basophils % 0.1 % (0.0-2.0) 07/26/17 06:40 Neutrophils (Manual) 57 % (40-80) 07/29/17 06:15 Lymphocytes 21 % (20-50) 07/29/17 06:15 Monocytes 14 % (2-10) H 07/29/17 06:15 Platelet Estimate DECREASED PLATELETS (NORMAL) 07/29/17 06:15 PT 11.0 SECONDS (9.5-11.5) 07/25/17 14:07 INR 1.06 (0.5-1.4) 07/25/17 14:07 PTT (Actin FS) 26.0 SECONDS (26.0-38.0) 07/25/17 14:07 Sodium 136 mEq/L (136-145) 07/28/17 05:53 Potassium 3.2 mEq/L (3.5-5.1) L 07/28/17 05:53 Chloride 106 mEq/L (98-107) 07/28/17 05:53 Carbon Dioxide 23.9 mEq/L (21.0-31.0) 07/28/17 05:53 Anion Gap 9.3 (7.0-16.0) 07/28/17 05:53 BUN 23 mg/dL (7-25) 07/28/17 05:53 Creatinine 1.2 mg/dL (0.7-1.3) 07/28/17 05:53 Est GFR ( Amer) TNP 07/28/17 05:53 Est GFR (Non-Af Amer) TNP 07/28/17 05:53 BUN/Creatinine Ratio 19.2 07/28/17 05:53 Glucose 100 mg/dL (70-105) 07/28/17 05:53 Whole Bld Lactic Acid 1.19 mmol/L (0.60-1.99) 07/25/17 14:07 Calcium 7.6 mg/dL (8.6-10.3) L 07/28/17 05:53 Total Bilirubin 0.5 mg/dL (0.3-1.0) 07/25/17 14:07 AST 18 U/L (13-39) 07/25/17 14:07 ALT 13 U/L (7-52) 07/25/17 14:07 Alkaline Phosphatase 111 U/L (34-104) H 07/25/17 14:07 Creatine Kinase 50 U/L (30-223) 07/25/17 14:07 Troponin I 0.02 ng/mL (0.01-0.05) 07/25/17 14:07 Total Protein 6.7 gm/dL (6.0-8.3) 07/25/17 14:07 Albumin 3.7 gm/dL (4.2-5.5) L 07/25/17 14:07 Globulin 3.0 gm/dL 07/25/17 14:07 Albumin/Globulin Ratio 1.2 (1.0-1.8) 07/25/17 14:07 Triglycerides 91 mg/dL (<150) 07/26/17 06:40 Cholesterol 207 mg/dL (<200) H 07/26/17 06:40 LDL Cholesterol Direct 158 mg/dL (75-193) 07/26/17 06:40 HDL Cholesterol 45 mg/dL (23-92) 07/26/17 06:40 TSH 2.11 uIU/ml (0.34-5.60) 07/25/17 14:07 Urine Source MIDSTREAM 07/25/17 03:15 Urine Color YELLOW 07/25/17 03:15 Urine Clarity HAZY (CLEAR) 07/25/17 03:15 Urine pH 6.5 (4.6 - 8.0) 07/25/17 03:15 Ur Specific [place] 1.025 (1.005-1.030) 07/25/17 03:15 Urine Protein TRACE mg/dL (NEGATIVE) 07/25/17 03:15 Urine Glucose (UA) NEGATIVE mg/dL (NEGATIVE) 07/25/17 03:15 Urine Ketones TRACE mg/dL (NEGATIVE) 07/25/17 03:15 Urine Blood LARGE (NEGATIVE) H 07/25/17 03:15 Urine Nitrate NEGATIVE (NEGATIVE) 07/25/17 03:15 Urine Bilirubin NEGATIVE (NEGATIVE) 07/25/17 03:15 Urine Urobilinogen 0.2 E.U./dL (0.2 - 1.0) 07/25/17 03:15 Ur Leukocyte Esterase NEGATIVE (NEGATIVE) 07/25/17 03:15 Urine RBC 50-100 /hpf (0-5) H 07/25/17 03:15 Urine WBC 2-5 /hpf (0-5) H 07/25/17 03:15 Ur Epithelial Cells MODERATE /lpf (FEW) 07/25/17 03:15 Urine Bacteria FEW /hpf (NONE SEEN) 07/25/17 03:15 Hyaline Casts 2-5 /lpf (0-2) H 07/25/17 03:15 Urine Mucus MODERATE /lpf (FEW) 07/25/17 03:15 Influenza A (Rapid) NEG FOR INF A 07/28/17 01:26 Influenza B (Rapid) NEG FOR INF B 07/28/17 01:26 - Physical Exam Vitals and I&O: Vital Signs Temp 97.8 F 07/30/17 08:00 Pulse 70 07/30/17 08:42 Resp 19 07/30/17 08:00 BP 136/78 07/30/17 08:42 Pulse Ox 95 07/30/17 04:00 Intake & Output 07/29/17 07/30/17 07/30/17 18:59 06:59 18:59 Intake Total 1500 460 Balance 1500 460 Weight (lbs) 110.223 kg 111.839 kg Intake: Intake, IV Amount 1000 100 D5-0.45NS 1,000 ml @ 50 1000 mls/hr IV .Q20H [facility] Rx#: [id number] Levofloxacin 500mg/100mL 100 500 mg In 100 ml @ 100 mls/hr IV Q24HR [facility] Rx#: [id number] Oral 500 360 Other: # Voids 2 3 # Bowel Movements 1 Active Medications: Current Medications Acetaminophen (Tylenol) 650 mg PO Q4H PRN PRN Reason: FEVER Stop: 09/23/17 19:57 Acetaminophen (Tylenol) 325 mg PO Q4HR PRN PRN Reason: Pain (Mild) Stop: 09/26/17 16:27 Baclofen (Lioresal) 10 mg PO DAILY [facility] Stop: 09/24/17 08:59 Last Admin: 07/30/17 08:42 Dose: 10 mg Clopidogrel Bisulfate (Plavix) 75 mg PO DAILY [facility] Stop: 09/24/17 08:59 Last Admin: 07/30/17 08:43 Dose: 75 mg Docusate Sodium (Colace) 500 mg PO BID [facility] Stop: 09/24/17 18:59 Last Admin: 07/30/17 08:42 Dose: 500 mg Furosemide (Lasix) 40 mg PO MWF [facility] Stop: 09/24/17 08:59 Last Admin: 07/28/17 09:54 Dose: 40 mg Dextrose/Sodium Chloride (D5-0.45ns) 1,000 mls @ 50 mls/hr IV .Q20H [facility] Stop: 09/23/17 19:49 Last Admin: 07/29/17 16:55 Dose: 50 mls/hr Levofloxacin (Levaquin Pb) 500 mg in 100 mls @ 100 mls/hr IV Q24HR [facility] Stop: 09/23/17 20:59 Last Infusion: 07/29/17 22:00 Dose: Infused Losartan Potassium (Cozaar) 50 mg PO DAILY [facility] Stop: 09/24/17 08:59 Last Admin: 07/30/17 08:42 Dose: 50 mg Ondansetron HCl (Zofran) 4 mg IV Q6H PRN PRN Reason: Nausea Stop: 09/23/17 19:45 Pantoprazole Sodium (Protonix) 40 mg PO BID [facility] Stop: 09/24/17 08:59 Last Admin: 07/30/17 08:42 Dose: 40 mg Tramadol HCl (Ultram) 50 mg PO ACHS [facility] Stop: 09/24/17 07:29 Last Admin: 07/30/17 06:35 Dose: Not Given General: Alert HEENT: Atraumatic Neck: Supple Cardiovascular: Regular rate Abdomen: Soft Neurological: Other (left hemiparesis) - Procedures Procedures: Procedures Procedure Code Date APPLICATION OF SPLINT 93.54 04/01/07 APPLY FOREARM SPLINT 45049 04/01/07 CATARAC PHACOEMULS/ASPIR 13.41 12/13/10 CATARACT SURG W/IOL 1 STAGE 05184 12/13/10 INSERT LENS AT CATAR EXT 13.71 12/13/10 OTHER GROUP THERAPY 94.44 11/21/14 Assessment/Plan - Problem List Patient Problems: All Active Problems BACK PAIN (Active 07/11/13) Weakness of limb (Active) M62.81 Cerebrovascular accident (Acute) I63.9 Chronic bronchitis (Acute) J42 Depressed affect (Acute) R45.89 Hypercholesteremia (Acute) E78.0 Obesity (Acute) E66.9 Osteoarthritis (Acute) M19.90 SLIP AND FALL WITH LOW BACK TRAUMA (Acute) - Plan Plan: as per order sheet
[2017-07-30] MEDS: D5-0.45NS 1,000 ML IV SCH (11:36)
[2017-07-30] MEDS: Levofloxacin 500mg/100mL 500 MG/100 ML BAG IV SCH (22:29)
--- NOTE | 2017-07-31 02:51 | Progress Notes ---
DATE: 07/29/2017 SUBJECTIVE/REVIEW OF SYSTEMS: The patient is awake, alert. Talking little bit more. The patient has still weakness on the left side as before. Some cough. No seizures. MEDICATIONS: Plavix, Protonix, baclofen. OBJECTIVE: VITAL SIGNS: 98.6, blood pressure 142/78, pulse is around 90. NECK: Supple. No bruits. NEUROLOGIC: The patient has left-sided weakness. The patient follows instructions. INVESTIGATIONS: CT scan of the head on 07/26/2017 shows no acute process. Some atrophy and white matter changes with right and left basal ganglion infarction. ASSESSMENT: 1. Encephalopathy, better. 2. Old stroke. 3. Sepsis. 4. Bronchitis. 5. Hypertension. PLAN: Continue present treatment. JOB# [id number]
[2017-07-31 07:19] LABS: HEMOGLOBIN 12.6 gm/dL (12-16); LYMPHOCYTE ABSOLUTE 0.9 Th/cmm (1.5-3.0); MEAN CELL VOLUME 93.2 fl (80-99); MONOCYTE ABSOLUTE 0.3 Th/cmm (0.3-1.0)
[2017-07-31 07:33] LABS: ALB/GLOB RATIO 0.9 (1.0-1.8); ALBUMIN 2.7 gm/dL (4.2-5.5); ALKALINE PHOSPHATASE 72 U/L (34-104); ANION GAP 7.1 (7.0-16.0); BILIRUBIN,TOTAL 0.3 mg/dL (0.3-1.0); BUN - UREA NITROGEN 18 mg/dL (7-25); CALCIUM SERUM 7.8 mg/dL (8.6-10.3); CARBON DIOXIDE 26.5 mEq/L (21.0-31.0); CHLORIDE 108 mEq/L (98-107); GLUCOSE 103 mg/dL (70-105); POTASSIUM SERUM 3.6 mEq/L (3.5-5.1); SGOT 21 U/L (13-39); SGPT/ALT 16 U/L (7-52); SODIUM SERUM 138 mEq/L (136-145); TOTAL PROTEIN,SERUM 5.7 gm/dL (6.0-8.3)
[2017-07-31 07:38] LABS: % EOSINOPHILS 1.1 % (0.0-5.0); % LYMPHOCYTES 36.1 % (20.0-50.0); % MONOCYTES 12.2 % (2.0-10.0); % NEUTROPHILS 50.6 % (40.0-80.0); HEMATOCRIT 37.3 % (41.0-60); MEAN CORPUSCULAR HEMOGLOBIN 31.6 pg (27.0-31.0); MEAN CORPUSCULAR HGB CONC 33.9 pg (28.0-36.0); MEAN PLATELET VOLUME 7.7 fl; NEUTROPHILE ABSOLUTE 1.3 Th/cmm (1.8-8.0); PLATELET COUNT 72 Th/cmm (150-400); RED CELL DISTRIBUTION WIDTH 13.5 % (11.5-20.0)
[2017-07-31 07:52] LABS: WHITE BLOOD COUNT 2.5 Th/cmm (4.8-10.8)
--- NOTE | 2017-07-31 09:58 | General Progress Note ---
Subjective - Review of Systems Service Date: 07/31/17 Objective - Results Result Diagrams: 07/31/17 05:55 07/31/17 05:55 Recent Labs: Laboratory Last Values WBC 2.5 Th/cmm (4.8-10.8) L D 07/31/17 05:55 RBC 4.00 Mil/cmm (3.80-5.80) 07/31/17 05:55 Hgb 12.6 gm/dL (12-16) 07/31/17 05:55 Hct 37.3 % (41.0-60) L 07/31/17 05:55 MCV 93.2 fl (80-99) 07/31/17 05:55 MCH 31.6 pg (27.0-31.0) H 07/31/17 05:55 MCHC Differential 33.9 pg (28.0-36.0) 07/31/17 05:55 RDW 13.5 % (11.5-20.0) 07/31/17 05:55 Plt Count 72 Th/cmm (150-400) L 07/31/17 05:55 MPV 7.7 fl 07/31/17 05:55 Neutrophils % 50.6 % (40.0-80.0) 07/31/17 05:55 Band Neutrophils % 8 % (0-10) 07/29/17 06:15 Lymphocytes % 36.1 % (20.0-50.0) 07/31/17 05:55 Monocytes % 12.2 % (2.0-10.0) H 07/31/17 05:55 Eosinophils % 1.1 % (0.0-5.0) 07/31/17 05:55 Basophils % 0.1 % (0.0-2.0) 07/26/17 06:40 Neutrophils (Manual) 57 % (40-80) 07/29/17 06:15 Lymphocytes 21 % (20-50) 07/29/17 06:15 Monocytes 14 % (2-10) H 07/29/17 06:15 Platelet Estimate DECREASED PLATELETS (NORMAL) 07/29/17 06:15 PT 11.0 SECONDS (9.5-11.5) 07/25/17 14:07 INR 1.06 (0.5-1.4) 07/25/17 14:07 PTT (Actin FS) 26.0 SECONDS (26.0-38.0) 07/25/17 14:07 Sodium 138 mEq/L (136-145) 07/31/17 05:55 Potassium 3.6 mEq/L (3.5-5.1) 07/31/17 05:55 Chloride 108 mEq/L (98-107) H 07/31/17 05:55 Carbon Dioxide 26.5 mEq/L (21.0-31.0) 07/31/17 05:55 Anion Gap 7.1 (7.0-16.0) 07/31/17 05:55 BUN 18 mg/dL (7-25) 07/31/17 05:55 Creatinine 1.0 mg/dL (0.7-1.3) 07/31/17 05:55 Est GFR ( Amer) TNP 07/31/17 05:55 Est GFR (Non-Af Amer) TNP 07/31/17 05:55 BUN/Creatinine Ratio 18.0 07/31/17 05:55 Glucose 103 mg/dL (70-105) 07/31/17 05:55 Whole Bld Lactic Acid 1.19 mmol/L (0.60-1.99) 07/25/17 14:07 Calcium 7.8 mg/dL (8.6-10.3) L 07/31/17 05:55 Total Bilirubin 0.3 mg/dL (0.3-1.0) 07/31/17 05:55 AST 21 U/L (13-39) 07/31/17 05:55 ALT 16 U/L (7-52) 07/31/17 05:55 Alkaline Phosphatase 72 U/L (34-104) 07/31/17 05:55 Creatine Kinase 50 U/L (30-223) 07/25/17 14:07 Troponin I 0.02 ng/mL (0.01-0.05) 07/25/17 14:07 Total Protein 5.7 gm/dL (6.0-8.3) L 07/31/17 05:55 Albumin 2.7 gm/dL (4.2-5.5) L 07/31/17 05:55 Globulin 3.0 gm/dL 07/31/17 05:55 Albumin/Globulin Ratio 0.9 (1.0-1.8) L 07/31/17 05:55 Triglycerides 91 mg/dL (<150) 07/26/17 06:40 Cholesterol 207 mg/dL (<200) H 07/26/17 06:40 LDL Cholesterol Direct 158 mg/dL (75-193) 07/26/17 06:40 HDL Cholesterol 45 mg/dL (23-92) 07/26/17 06:40 TSH 2.11 uIU/ml (0.34-5.60) 07/25/17 14:07 Urine Source MIDSTREAM 07/25/17 03:15 Urine Color YELLOW 07/25/17 03:15 Urine Clarity HAZY (CLEAR) 07/25/17 03:15 Urine pH 6.5 (4.6 - 8.0) 07/25/17 03:15 Ur Specific [place] 1.025 (1.005-1.030) 07/25/17 03:15 Urine Protein TRACE mg/dL (NEGATIVE) 07/25/17 03:15 Urine Glucose (UA) NEGATIVE mg/dL (NEGATIVE) 07/25/17 03:15 Urine Ketones TRACE mg/dL (NEGATIVE) 07/25/17 03:15 Urine Blood LARGE (NEGATIVE) H 07/25/17 03:15 Urine Nitrate NEGATIVE (NEGATIVE) 07/25/17 03:15 Urine Bilirubin NEGATIVE (NEGATIVE) 07/25/17 03:15 Urine Urobilinogen 0.2 E.U./dL (0.2 - 1.0) 07/25/17 03:15 Ur Leukocyte Esterase NEGATIVE (NEGATIVE) 07/25/17 03:15 Urine RBC 50-100 /hpf (0-5) H 07/25/17 03:15 Urine WBC 2-5 /hpf (0-5) H 07/25/17 03:15 Ur Epithelial Cells MODERATE /lpf (FEW) 07/25/17 03:15 Urine Bacteria FEW /hpf (NONE SEEN) 07/25/17 03:15 Hyaline Casts 2-5 /lpf (0-2) H 07/25/17 03:15 Urine Mucus MODERATE /lpf (FEW) 07/25/17 03:15 Influenza A (Rapid) NEG FOR INF A 07/28/17 01:26 Influenza B (Rapid) NEG FOR INF B 07/28/17 01:26 - Physical Exam Vitals and I&O: Vital Signs Temp 97.8 F 07/31/17 04:00 Pulse 75 07/31/17 04:00 Resp 20 07/31/17 04:00 BP 118/70 07/31/17 04:00 Pulse Ox 94 07/31/17 04:00 Intake & Output 07/30/17 07/31/17 07/31/17 18:59 06:59 18:59 Intake Total 1134.167 50 Balance 1134.167 50 Weight (lbs) 111.584 kg 117.934 kg Intake: Intake, IV Amount 934.167 D5-0.45NS 1,000 ml @ 50 934.167 mls/hr IV .Q20H [facility] Rx#: [id number] Oral 200 50 Other: # Voids 4 3 # Bowel Movements 1 Active Medications: Current Medications Acetaminophen (Tylenol) 650 mg PO Q4H PRN PRN Reason: FEVER Stop: 09/23/17 19:57 Acetaminophen (Tylenol) 325 mg PO Q4HR PRN PRN Reason: Pain (Mild) Stop: 09/26/17 16:27 Baclofen (Lioresal) 10 mg PO DAILY [facility] Stop: 09/24/17 08:59 Last Admin: 07/30/17 08:42 Dose: 10 mg Clopidogrel Bisulfate (Plavix) 75 mg PO DAILY [facility] Stop: 09/24/17 08:59 Last Admin: 07/30/17 08:43 Dose: 75 mg Docusate Sodium (Colace) 500 mg PO BID [facility] Stop: 09/24/17 18:59 Last Admin: 07/30/17 17:30 Dose: 500 mg Furosemide (Lasix) 40 mg PO MWF [facility] Stop: 09/24/17 08:59 Last Admin: 07/28/17 09:54 Dose: 40 mg Dextrose/Sodium Chloride (D5-0.45ns) 1,000 mls @ 50 mls/hr IV .Q20H [facility] Stop: 09/23/17 19:49 Last Admin: 07/30/17 11:36 Dose: 50 mls/hr Losartan Potassium (Cozaar) 50 mg PO DAILY [facility] Stop: 09/24/17 08:59 Last Admin: 07/30/17 08:42 Dose: 50 mg Ondansetron HCl (Zofran) 4 mg IV Q6H PRN PRN Reason: Nausea Stop: 09/23/17 19:45 Pantoprazole Sodium (Protonix) 40 mg PO BID [facility] Stop: 09/24/17 08:59 Last Admin: 07/30/17 17:31 Dose: 40 mg Tramadol HCl (Ultram) 50 mg PO ACHS [facility] Stop: 09/24/17 07:29 Last Admin: 07/31/17 07:41 Dose: 50 mg General: Alert HEENT: Atraumatic Neck: Supple Cardiovascular: Regular rate Abdomen: Soft Neurological: Other (left hemiparesis) - Procedures Procedures: Procedures Procedure Code Date APPLICATION OF SPLINT 93.54 04/01/07 APPLY FOREARM SPLINT 41521 04/01/07 CATARAC PHACOEMULS/ASPIR 13.41 12/13/10 CATARACT SURG W/IOL 1 STAGE 18547 12/13/10 INSERT LENS AT CATAR EXT 13.71 12/13/10 OTHER GROUP THERAPY 94.44 11/21/14 Assessment/Plan - Problem List Patient Problems: All Active Problems BACK PAIN (Active 07/11/13) Weakness of limb (Active) M62.81 Cerebrovascular accident (Acute) I63.9 Chronic bronchitis (Acute) J42 Depressed affect (Acute) R45.89 Hypercholesteremia (Acute) E78.0 Obesity (Acute) E66.9 Osteoarthritis (Acute) M19.90 SLIP AND FALL WITH LOW BACK TRAUMA (Acute) - Assessment Assessment: * Leukopenia/ thrombocytopenia secondary to spenomegaly * Monocytosis sec to viral illness * Splenomegaly monitor b12, folic acid No transfusion needed
[2017-07-31] MEDS: Pantoprazole 40 mg EC Tab PO SCH ×2 (10:25→16:36)
[2017-07-31] MEDS: D5-0.45NS 1,000 ML IV SCH (10:33)
--- NOTE | 2017-07-31 11:33 | Infectious Disease Prog Note ---
Infectious Disease Subjective - Review of Systems Service Date: 07/31/17 Subjective: Doing well. Infectious Disease Objective - Results Result Diagrams: 07/31/17 05:55 07/31/17 05:55 Recent Labs: Laboratory Last Values WBC 2.5 Th/cmm (4.8-10.8) L D 07/31/17 05:55 RBC 4.00 Mil/cmm (3.80-5.80) 07/31/17 05:55 Hgb 12.6 gm/dL (12-16) 07/31/17 05:55 Hct 37.3 % (41.0-60) L 07/31/17 05:55 MCV 93.2 fl (80-99) 07/31/17 05:55 MCH 31.6 pg (27.0-31.0) H 07/31/17 05:55 MCHC Differential 33.9 pg (28.0-36.0) 07/31/17 05:55 RDW 13.5 % (11.5-20.0) 07/31/17 05:55 Plt Count 72 Th/cmm (150-400) L 07/31/17 05:55 MPV 7.7 fl 07/31/17 05:55 Neutrophils % 50.6 % (40.0-80.0) 07/31/17 05:55 Band Neutrophils % 8 % (0-10) 07/29/17 06:15 Lymphocytes % 36.1 % (20.0-50.0) 07/31/17 05:55 Monocytes % 12.2 % (2.0-10.0) H 07/31/17 05:55 Eosinophils % 1.1 % (0.0-5.0) 07/31/17 05:55 Basophils % 0.1 % (0.0-2.0) 07/26/17 06:40 Neutrophils (Manual) 57 % (40-80) 07/29/17 06:15 Lymphocytes 21 % (20-50) 07/29/17 06:15 Monocytes 14 % (2-10) H 07/29/17 06:15 Platelet Estimate DECREASED PLATELETS (NORMAL) 07/29/17 06:15 PT 11.0 SECONDS (9.5-11.5) 07/25/17 14:07 INR 1.06 (0.5-1.4) 07/25/17 14:07 PTT (Actin FS) 26.0 SECONDS (26.0-38.0) 07/25/17 14:07 Sodium 138 mEq/L (136-145) 07/31/17 05:55 Potassium 3.6 mEq/L (3.5-5.1) 07/31/17 05:55 Chloride 108 mEq/L (98-107) H 07/31/17 05:55 Carbon Dioxide 26.5 mEq/L (21.0-31.0) 07/31/17 05:55 Anion Gap 7.1 (7.0-16.0) 07/31/17 05:55 BUN 18 mg/dL (7-25) 07/31/17 05:55 Creatinine 1.0 mg/dL (0.7-1.3) 07/31/17 05:55 Est GFR ( Amer) TNP 07/31/17 05:55 Est GFR (Non-Af Amer) TNP 07/31/17 05:55 BUN/Creatinine Ratio 18.0 07/31/17 05:55 Glucose 103 mg/dL (70-105) 07/31/17 05:55 Whole Bld Lactic Acid 1.19 mmol/L (0.60-1.99) 07/25/17 14:07 Calcium 7.8 mg/dL (8.6-10.3) L 07/31/17 05:55 Total Bilirubin 0.3 mg/dL (0.3-1.0) 07/31/17 05:55 AST 21 U/L (13-39) 07/31/17 05:55 ALT 16 U/L (7-52) 07/31/17 05:55 Alkaline Phosphatase 72 U/L (34-104) 07/31/17 05:55 Creatine Kinase 50 U/L (30-223) 07/25/17 14:07 Troponin I 0.02 ng/mL (0.01-0.05) 07/25/17 14:07 Total Protein 5.7 gm/dL (6.0-8.3) L 07/31/17 05:55 Albumin 2.7 gm/dL (4.2-5.5) L 07/31/17 05:55 Globulin 3.0 gm/dL 07/31/17 05:55 Albumin/Globulin Ratio 0.9 (1.0-1.8) L 07/31/17 05:55 Triglycerides 91 mg/dL (<150) 07/26/17 06:40 Cholesterol 207 mg/dL (<200) H 07/26/17 06:40 LDL Cholesterol Direct 158 mg/dL (75-193) 07/26/17 06:40 HDL Cholesterol 45 mg/dL (23-92) 07/26/17 06:40 TSH 2.11 uIU/ml (0.34-5.60) 07/25/17 14:07 Urine Source MIDSTREAM 07/25/17 03:15 Urine Color YELLOW 07/25/17 03:15 Urine Clarity HAZY (CLEAR) 07/25/17 03:15 Urine pH 6.5 (4.6 - 8.0) 07/25/17 03:15 Ur Specific [place] 1.025 (1.005-1.030) 07/25/17 03:15 Urine Protein TRACE mg/dL (NEGATIVE) 07/25/17 03:15 Urine Glucose (UA) NEGATIVE mg/dL (NEGATIVE) 07/25/17 03:15 Urine Ketones TRACE mg/dL (NEGATIVE) 07/25/17 03:15 Urine Blood LARGE (NEGATIVE) H 07/25/17 03:15 Urine Nitrate NEGATIVE (NEGATIVE) 07/25/17 03:15 Urine Bilirubin NEGATIVE (NEGATIVE) 07/25/17 03:15 Urine Urobilinogen 0.2 E.U./dL (0.2 - 1.0) 07/25/17 03:15 Ur Leukocyte Esterase NEGATIVE (NEGATIVE) 07/25/17 03:15 Urine RBC 50-100 /hpf (0-5) H 07/25/17 03:15 Urine WBC 2-5 /hpf (0-5) H 07/25/17 03:15 Ur Epithelial Cells MODERATE /lpf (FEW) 07/25/17 03:15 Urine Bacteria FEW /hpf (NONE SEEN) 07/25/17 03:15 Hyaline Casts 2-5 /lpf (0-2) H 07/25/17 03:15 Urine Mucus MODERATE /lpf (FEW) 07/25/17 03:15 Influenza A (Rapid) NEG FOR INF A 07/28/17 01:26 Influenza B (Rapid) NEG FOR INF B 07/28/17 01:26 - Physical Exam Vitals and I&O: Vital Signs Temp 97.8 F 07/31/17 04:00 Pulse 72 07/31/17 10:25 Resp 20 07/31/17 04:00 BP 121/72 07/31/17 10:25 Pulse Ox 94 07/31/17 04:00 Intake & Output 07/30/17 07/31/17 07/31/17 18:59 06:59 18:59 Intake Total 2993.634 1622 Balance 1481.043 4306 Weight (lbs) 111.584 kg 117.934 kg Intake: Intake, IV Amount 153.320 1240 D5-0.45NS 1,000 ml @ 50 753.175 6670 mls/hr IV .Q20H [facility] Rx#: [id number] Oral 200 50 Other: # Voids 4 3 # Bowel Movements 1 Active Medications: Current Medications Acetaminophen (Tylenol) 650 mg PO Q4H PRN PRN Reason: FEVER Stop: 09/23/17 19:57 Acetaminophen (Tylenol) 325 mg PO Q4HR PRN PRN Reason: Pain (Mild) Stop: 09/26/17 16:27 Baclofen (Lioresal) 10 mg PO DAILY [facility] Stop: 09/24/17 08:59 Last Admin: 07/31/17 10:25 Dose: 10 mg Clopidogrel Bisulfate (Plavix) 75 mg PO DAILY [facility] Stop: 09/24/17 08:59 Last Admin: 07/31/17 10:25 Dose: 75 mg Docusate Sodium (Colace) 500 mg PO BID [facility] Stop: 09/24/17 18:59 Last Admin: 07/31/17 10:25 Dose: 500 mg Furosemide (Lasix) 40 mg PO MWF [facility] Stop: 09/24/17 08:59 Last Admin: 07/31/17 10:25 Dose: 40 mg Dextrose/Sodium Chloride (D5-0.45ns) 1,000 mls @ 50 mls/hr IV .Q20H [facility] Stop: 09/23/17 19:49 Last Admin: 07/31/17 10:33 Dose: 50 mls/hr Losartan Potassium (Cozaar) 50 mg PO DAILY [facility] Stop: 09/24/17 08:59 Last Admin: 07/31/17 10:25 Dose: 50 mg Ondansetron HCl (Zofran) 4 mg IV Q6H PRN PRN Reason: Nausea Stop: 09/23/17 19:45 Pantoprazole Sodium (Protonix) 40 mg PO BID [facility] Stop: 09/24/17 08:59 Last Admin: 07/31/17 10:25 Dose: 40 mg Tramadol HCl (Ultram) 50 mg PO ACHS [facility] Stop: 09/24/17 07:29 Last Admin: 07/31/17 07:41 Dose: 50 mg General: no acute distress, well developed, well nourished, cachectic HEENT: atraumatic, normocephalic Neck: supple, no thyromegaly Cardiovascular: S1S2, regular Lungs: clear to auscultation bilaterally, clear to percussion Abdomen: soft, no tender, no distended, no mass, no rebound Extremities: no cyanosis, no clubbing, no edema Neurological: awake, alert, oriented Skin: intact - Procedures Procedures: Procedures Procedure Code Date APPLICATION OF SPLINT 93.54 04/01/07 APPLY FOREARM SPLINT 75880 04/01/07 CATARAC PHACOEMULS/ASPIR 13.41 12/13/10 CATARACT SURG W/IOL 1 STAGE 18056 12/13/10 INSERT LENS AT CATAR EXT 13.71 12/13/10 OTHER GROUP THERAPY 94.44 11/21/14 Infectious Disease Assmt/Plan - Problem List Patient Problems: All Active Problems BACK PAIN (Active 07/11/13) Weakness of limb (Active) M62.81 Cerebrovascular accident (Acute) I63.9 Chronic bronchitis (Acute) J42 Depressed affect (Acute) R45.89 Hypercholesteremia (Acute) E78.0 Obesity (Acute) E66.9 Osteoarthritis (Acute) M19.90 SLIP AND FALL WITH LOW BACK TRAUMA (Acute) - Assessment Assessment: IMPRESSION: 1. Bronchitis. 2. Urinary tract infection, hematuria. 3. History of cerebrovascular accident. 4. Hypertension. 5. Headache. RECOMMENDATIONS: Continue Levaquin.
[2017-08-01 05:14] LABS: FOLIC ACID 5.6 ng/mL (>3.0)
[2017-08-01] MEDS: D5-0.45NS 1,000 ML IV SCH (06:18)
[2017-08-01 06:43] LABS: % BASOPHILS 0.1 % (0.0-2.0); % EOSINOPHILS 0.8 % (0.0-5.0); % MONOCYTES 10.4 % (2.0-10.0); % NEUTROPHILS 59.7 % (40.0-80.0); HEMATOCRIT 36.8 % (41.0-60); HEMOGLOBIN 12.7 gm/dL (12-16); LYMPHOCYTE ABSOLUTE 0.9 Th/cmm (1.5-3.0); MEAN CELL VOLUME 91.5 fl (80-99); MEAN CORPUSCULAR HEMOGLOBIN 31.4 pg (27.0-31.0); MEAN CORPUSCULAR HGB CONC 34.4 pg (28.0-36.0); MEAN PLATELET VOLUME 7.6 fl; MONOCYTE ABSOLUTE 0.3 Th/cmm (0.3-1.0); PLATELET COUNT 85 Th/cmm (150-400); RED BLOOD COUNT 4.03 Mil/cmm (3.80-5.80); RED CELL DISTRIBUTION WIDTH 13.3 % (11.5-20.0)
[2017-08-01 06:49] LABS: WHITE BLOOD COUNT 3.2 Th/cmm (4.8-10.8)
[2017-08-01] MEDS: Pantoprazole 40 mg EC Tab PO SCH ×2 (08:50→16:36)
--- NOTE | 2017-08-01 16:15 | General Progress Note ---
Subjective - Review of Systems Events since last encounter: patient in no acute distress Objective - Results Result Diagrams: 08/01/17 06:19 07/31/17 05:55 Recent Labs: Laboratory Last Values WBC 3.2 Th/cmm (4.8-10.8) L D 08/01/17 06:19 RBC 4.03 Mil/cmm (3.80-5.80) 08/01/17 06:19 Hgb 12.7 gm/dL (12-16) 08/01/17 06:19 Hct 36.8 % (41.0-60) L 08/01/17 06:19 MCV 91.5 fl (80-99) 08/01/17 06:19 MCH 31.4 pg (27.0-31.0) H 08/01/17 06:19 MCHC Differential 34.4 pg (28.0-36.0) 08/01/17 06:19 RDW 13.3 % (11.5-20.0) 08/01/17 06:19 Plt Count 85 Th/cmm (150-400) L 08/01/17 06:19 MPV 7.6 fl 08/01/17 06:19 Neutrophils % 59.7 % (40.0-80.0) 08/01/17 06:19 Band Neutrophils % 8 % (0-10) 07/29/17 06:15 Lymphocytes % 29.0 % (20.0-50.0) 08/01/17 06:19 Monocytes % 10.4 % (2.0-10.0) H 08/01/17 06:19 Eosinophils % 0.8 % (0.0-5.0) 08/01/17 06:19 Basophils % 0.1 % (0.0-2.0) 08/01/17 06:19 Neutrophils (Manual) 57 % (40-80) 07/29/17 06:15 Lymphocytes 21 % (20-50) 07/29/17 06:15 Monocytes 14 % (2-10) H 07/29/17 06:15 Platelet Estimate DECREASED PLATELETS (NORMAL) 07/29/17 06:15 PT 11.0 SECONDS (9.5-11.5) 07/25/17 14:07 INR 1.06 (0.5-1.4) 07/25/17 14:07 PTT (Actin FS) 26.0 SECONDS (26.0-38.0) 07/25/17 14:07 Sodium 138 mEq/L (136-145) 07/31/17 05:55 Potassium 3.6 mEq/L (3.5-5.1) 07/31/17 05:55 Chloride 108 mEq/L (98-107) H 07/31/17 05:55 Carbon Dioxide 26.5 mEq/L (21.0-31.0) 07/31/17 05:55 Anion Gap 7.1 (7.0-16.0) 07/31/17 05:55 BUN 18 mg/dL (7-25) 07/31/17 05:55 Creatinine 1.0 mg/dL (0.7-1.3) 07/31/17 05:55 Est GFR ( Amer) TNP 07/31/17 05:55 Est GFR (Non-Af Amer) TNP 07/31/17 05:55 BUN/Creatinine Ratio 18.0 07/31/17 05:55 Glucose 103 mg/dL (70-105) 07/31/17 05:55 Whole Bld Lactic Acid 1.19 mmol/L (0.60-1.99) 07/25/17 14:07 Calcium 7.8 mg/dL (8.6-10.3) L 07/31/17 05:55 Total Bilirubin 0.3 mg/dL (0.3-1.0) 07/31/17 05:55 AST 21 U/L (13-39) 07/31/17 05:55 ALT 16 U/L (7-52) 07/31/17 05:55 Alkaline Phosphatase 72 U/L (34-104) 07/31/17 05:55 Creatine Kinase 50 U/L (30-223) 07/25/17 14:07 Troponin I 0.02 ng/mL (0.01-0.05) 07/25/17 14:07 Total Protein 5.7 gm/dL (6.0-8.3) L 07/31/17 05:55 Albumin 2.7 gm/dL (4.2-5.5) L 07/31/17 05:55 Globulin 3.0 gm/dL 07/31/17 05:55 Albumin/Globulin Ratio 0.9 (1.0-1.8) L 07/31/17 05:55 Triglycerides 91 mg/dL (<150) 07/26/17 06:40 Cholesterol 207 mg/dL (<200) H 07/26/17 06:40 LDL Cholesterol Direct 158 mg/dL (75-193) 07/26/17 06:40 HDL Cholesterol 45 mg/dL (23-92) 07/26/17 06:40 Vitamin B12 170 pg/mL (232-1245) L 07/28/17 05:53 Folic Acid 5.6 ng/mL (>3.0) 07/28/17 05:53 TSH 2.11 uIU/ml (0.34-5.60) 07/25/17 14:07 Urine Source MIDSTREAM 07/25/17 03:15 Urine Color YELLOW 07/25/17 03:15 Urine Clarity HAZY (CLEAR) 07/25/17 03:15 Urine pH 6.5 (4.6 - 8.0) 07/25/17 03:15 Ur Specific [place] 1.025 (1.005-1.030) 07/25/17 03:15 Urine Protein TRACE mg/dL (NEGATIVE) 07/25/17 03:15 Urine Glucose (UA) NEGATIVE mg/dL (NEGATIVE) 07/25/17 03:15 Urine Ketones TRACE mg/dL (NEGATIVE) 07/25/17 03:15 Urine Blood LARGE (NEGATIVE) H 07/25/17 03:15 Urine Nitrate NEGATIVE (NEGATIVE) 07/25/17 03:15 Urine Bilirubin NEGATIVE (NEGATIVE) 07/25/17 03:15 Urine Urobilinogen 0.2 E.U./dL (0.2 - 1.0) 07/25/17 03:15 Ur Leukocyte Esterase NEGATIVE (NEGATIVE) 07/25/17 03:15 Urine RBC 50-100 /hpf (0-5) H 07/25/17 03:15 Urine WBC 2-5 /hpf (0-5) H 07/25/17 03:15 Ur Epithelial Cells MODERATE /lpf (FEW) 07/25/17 03:15 Urine Bacteria FEW /hpf (NONE SEEN) 07/25/17 03:15 Hyaline Casts 2-5 /lpf (0-2) H 07/25/17 03:15 Urine Mucus MODERATE /lpf (FEW) 07/25/17 03:15 Influenza A (Rapid) NEG FOR INF A 07/28/17 01:26 Influenza B (Rapid) NEG FOR INF B 07/28/17 01:26 - Physical Exam Vitals and I&O: Vital Signs Temp 97.2 F 08/01/17 15:23 Pulse 71 08/01/17 15:23 Resp 18 08/01/17 15:23 BP 119/66 08/01/17 15:23 Pulse Ox 94 08/01/17 15:23 Intake & Output 07/31/17 08/01/17 08/01/17 18:59 06:59 18:59 Intake Total 1050 1237.5 100 Balance 1050 1237.5 100 Weight (lbs) 117.934 kg 117.934 kg 117.934 kg Intake: Intake, IV Amount 1000 987.5 D5-0.45NS 1,000 ml @ 50 1000 987.5 mls/hr IV .Q20H [facility] Rx#: [id number] Oral 50 250 100 Other: # Voids 3 3 3 # Bowel Movements 1 0 Active Medications: Current Medications Acetaminophen (Tylenol) 650 mg PO Q4H PRN PRN Reason: FEVER Stop: 09/23/17 19:57 Acetaminophen (Tylenol) 325 mg PO Q4HR PRN PRN Reason: Pain (Mild) Stop: 09/26/17 16:27 Baclofen (Lioresal) 10 mg PO DAILY [facility] Stop: 09/24/17 08:59 Last Admin: 08/01/17 08:50 Dose: 10 mg Clopidogrel Bisulfate (Plavix) 75 mg PO DAILY [facility] Stop: 09/24/17 08:59 Last Admin: 08/01/17 08:50 Dose: 75 mg Docusate Sodium (Colace) 500 mg PO BID [facility] Stop: 09/24/17 18:59 Last Admin: 08/01/17 08:50 Dose: 500 mg Furosemide (Lasix) 40 mg PO MWF [facility] Stop: 09/24/17 08:59 Last Admin: 07/31/17 10:25 Dose: 40 mg Dextrose/Sodium Chloride (D5-0.45ns) 1,000 mls @ 50 mls/hr IV .Q20H [facility] Stop: 09/23/17 19:49 Last Admin: 08/01/17 06:18 Dose: 50 mls/hr Losartan Potassium (Cozaar) 50 mg PO DAILY [facility] Stop: 09/24/17 08:59 Last Admin: 08/01/17 08:50 Dose: 50 mg Ondansetron HCl (Zofran) 4 mg IV Q6H PRN PRN Reason: Nausea Stop: 09/23/17 19:45 Pantoprazole Sodium (Protonix) 40 mg PO BID JOS[facility] MIGUEL Stop: 09/24/17 08:59 Last Admin: 08/01/17 08:50 Dose: 40 mg Tramadol HCl (Ultram) 50 mg PO ACHS JOS[facility] MIGUEL Stop: 09/24/17 07:29 Last Admin: 08/01/17 11:15 Dose: Not Given General: Alert HEENT: Atraumatic Neck: Supple Cardiovascular: Regular rate Abdomen: Soft Neurological: Other (left hemiparesis) - Procedures Procedures: Procedures Procedure Code Date APPLICATION OF SPLINT 93.54 04/01/07 APPLY FOREARM SPLINT 62089 04/01/07 CATARAC PHACOEMULS/ASPIR 13.41 12/13/10 CATARACT SURG W/IOL 1 STAGE 36119 12/13/10 INSERT LENS AT CATAR EXT 13.71 12/13/10 OTHER GROUP THERAPY 94.44 11/21/14 Assessment/Plan - Problem List Patient Problems: All Active Problems BACK PAIN (Active 07/11/13) Weakness of limb (Active) M62.81 Cerebrovascular accident (Acute) I63.9 Chronic bronchitis (Acute) J42 Depressed affect (Acute) R45.89 Hypercholesteremia (Acute) E78.0 Obesity (Acute) E66.9 Osteoarthritis (Acute) M19.90 SLIP AND FALL WITH LOW BACK TRAUMA (Acute) - Plan Plan: as per order sheet Nutritional Asmnt/Malnutr-PDOC - Dietary Evaluation Malnutrition Findings (Please click <Entered> for more info): Nutritional Asmnt/Malnutrition Start: 08/01/17 14: 57 Text: Status: Complete Freq: Document 08/01/17 14:57 LEILA (Rec: 08/01/17 15:13 LEILA [id number]) Nutritional Asmnt/Malnutrition Patient General Information Nutritional Screening Moderate Risk Diagnosis sepsis, UTI Pertinent Medical Hx/Surgical Hx HTN, CVA/TIA, dyslipidemia, PUD, GERD, arthritis, BPH, bipolar Subjective Information Pt seen lying in bed, awake and alert. Pt reported good appetite, always finished his tray. Current Diet Order/ Nutrition Support cardiac Pertinent Medications d5-0.45ns, colace, lasix, protonix Pertinent Labs 07/31 Na 138, K 3.6, Cl 108, BUN 18, Cr 1.0, Glucose 7.8, alb 2.7 Nutritional Hx/Data Height 1.8 m Height (Calculated Centimeters) 180.3 Current Weight (lbs) 117.934 kg Weight (Calculated Kilograms) 117.9 Weight (Calculated Grams) 096468.0 [place] Body Weight 172 % [place] Body Weight 151 Body Mass Index (BMI) 36.2 Weight Status Obese GI Symptoms GI Symptoms None Last BM 07/31 Difficult in: None Skin Integrity/Comment: abrasion to right low leg Estimated Nutritional Goals BEE in Kcals: Adj wt of IBW Calories/Kcals/Kg 25-30 Kcals Calculated 0307-1664 Protein: Adj wt of IBW Protein g/k Protein Calculated 88 Fluid: ml 9617-9770 Nutritional Problem No current Nutrition Prob Problem N/A Malnutrition Alert Protein-Calorie Malnutrition N/A Is there a minimum of two criteria No selected? Query Text:Check all the applicable criteria. A minimum of two criteria are recommended for diagnosis of either severe or non-severe malnutrition. Intervention/Recommendation Comments 1. Continue with current diet as ordered. 2. Monitor PO intake, wt, labs and skin integrity 3. F/U as low risk in 7da sy, 08/07 Expected Outcomes/Goals Expected Outcomes/Goals 1. PO intake to meet at least 75% of nutritional needs. 2. Wt stability, skin to remain intact, labs to approach WNL.
--- NOTE | 2017-08-02 09:57 | Progress Notes ---
DATE: 08/01/2017 SUBJECTIVE: The patient is lying in bed, awake, alert. The patient is talking better. Feels stronger. No seizures. No headaches. MEDICATIONS: Plavix, Protonix, Baclofen. OBJECTIVE: VITAL SINGS: 98.4, blood pressure 146/80, pulse 88. NECK: Supple, no bruits. HEART: Sounds normal. LUNGS: Clear. NEUROLOGIC: The patient is awake. Moving right side okay. The patient's left side is hemiplegia. INVESTIGATIONS: CT scan head of 07/26/2017 shows no acute process. Some atrophy, white matter changes with right and left basal ganglion. ASSESSMENT: 1. Encephalopathy, better. 2. 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 3. Sepsis. 4. Bronchitis. 5. Hypertension. PLAN: Continue present treatment. Continue with antiplatelet medications. JOB# [id number]
--- NOTE | 2017-08-21 16:05 | Discharge Summary ---
DATE OF DISCHARGE: 08/01/2017 HOSPITAL COURSE: This patient came in because of the abnormal labs. The patient was seen in the Emergency Room initially, was admitted for leukopenia, sepsis, gastritis, intractable vomiting and dehydration, and bronchitis, and the patient was given IV fluids. The patient improved. The patient was in stable condition and was sent to Geropsych unit and he improved there also. The patient was discharged to [facility] on 08/[address] Castaneda will follow the patient. MEDICATIONS: See the reconciliation sheet. CONDITION AT TIME OF DISCHARGE: Stable. ACTIVITY: As tolerated. DIET: As noted. JOB# [id number]
--- NOTE | 2017-09-16 17:46 | History & Physical ---
ADMIT DATE: 07/25/2017 HISTORY OF PRESENT ILLNESS: The patient was admitted on 07/25/2017 and the patient has a history of hypertension, history of hyperlipidemia, history of arthritis in the past, and the patient was admitted for a possible sepsis, leukopenia, gastritis, intractable vomiting and dehydration and bronchitis. The patient was complaining of increasing cough and increasing severe weakness. PAST MEDICAL HISTORY: As noted above. PAST SURGICAL HISTORY: As noted above. REVIEW OF SYSTEMS: It is difficult to obtain much history from the patient. PHYSICAL EXAMINATION: GENERAL: Awake, alert, well-developed, well-nourished male patient. VITAL SIGNS: As noted in chart. HEAD: Normal. ENT: Normal. LUNGS: Clear. CARDIOVASCULAR SYSTEM: S1, S2 heard. ABDOMEN: Soft. Bowel sounds are heard. CENTRAL NERVOUS SYSTEM: Decreased sensorium. LABORATORY DATA: White count was 3.3. EKG showed normal sinus rhythm. DIAGNOSES: 1. Leukopenia. 2. Rule out sepsis. 3. Intractable nausea, vomiting, gastritis, dehydration, bronchitis, history of hypertension. PLAN: The patient is going to be admitted and I will follow the patient. I will also have Dr. Woody also see the patient. JOB# [id number]
== END 2017-08-01 22:25 | disposition home or self-care (01) | DRG 871 ==
LOC: ER 13:25 → MSI 19:52
PROVIDERS: ADMIT Internal Medicine; ATTEND Internal Medicine
DX: A41.9 Sepsis, unspecified organism (principal); G93.41 Metabolic encephalopathy; D61.818 Other pancytopenia; I69.354 Hemiplegia and hemiparesis following cerebral infarction affecting left non-dominant side; N39.0 Urinary tract infection, site not specified; R16.1 Splenomegaly, not elsewhere classified; E86.0 Dehydration; E78.5 Hyperlipidemia, unspecified; I10 Essential (primary) hypertension; K21.9 Gastro-esophageal reflux disease without esophagitis; M19.90 Unspecified osteoarthritis, unspecified site; N40.0 Benign prostatic hyperplasia without lower urinary tract symptoms; F31.9 Bipolar disorder, unspecified; K29.70 Gastritis, unspecified, without bleeding; K27.9 Peptic ulcer, site unspecified, unspecified as acute or chronic, without hemorrhage or perforation; K52.9 Noninfective gastroenteritis and colitis, unspecified; J42 Unspecified chronic bronchitis; R31.9 Hematuria, unspecified; J20.9 Acute bronchitis, unspecified; R51 Headache; E66.9 Obesity, unspecified; D72.821 Monocytosis (symptomatic); B34.9 Viral infection, unspecified; Z83.3 Family history of diabetes mellitus; Z82.49 Family history of ischemic heart disease and other diseases of the circulatory system; Z68.36 Body mass index [BMI] 36.0-36.9, adult; Z79.899 Other long term (current) drug therapy
CPT/HCPCS: 36415-UA; 70450-TC; 71045-TC; 76700-TC; 76770-TC; 80048-TC; 80053-TC; 80061-TC; 81001-TC; 82550-TC; 82607-90; 82746-90; 83605; 84443-TC; 84484-TC; 85007-TC; 85025-TC; 85027-TC; 85610-TC; 85730-TC; 87804-TC; 93005; J0696; J1956; J7030; Z7610